=== PATIENT | female | born 1945 | race Caucasian/White ===

== ENCOUNTER 2017-02-20 12:31 | Emergency (ER) | payer MEDICARE, OTHER ==
[~2017-02-20] VITALS: Ht 157.5 cm; Wt 51.4 kg
[2017-02-20] MEDS ORDERED: FAMOTIDINE 20 MG/2 ML VIAL IVP ONE (13:30)
[2017-02-20] MEDS ORDERED: ONDANSETRON PF 4 MG/2 ML VIAL. IV ONE ×2 (13:30→17:00)
[2017-02-20] MEDS ORDERED: IOHEXOL 300 MG/ML 75 ML VIAL. IV ONE (13:45)
[2017-02-20 14:00] LABS: BASO % 0 % (0-3); EOS % 0 % (0-3); HEMATOCRIT 38.4 % (36.0-47.0); HEMOGLOBIN 12.6 g/dL (12.0-15.5); LYMPH # 0.6 x10^3/uL (1.0-4.8); LYMPH % 10 % (24-48); MEAN CORPUSCULAR HEMOGLOBIN 30 pg (25-35); MEAN CORPUSCULAR HGB CONC 33 g/dL (31-37); MEAN CORPUSCULAR VOLUME 91 fL (79-100); MONO # 0.2 x10^3/uL (0.0-1.1); MONO % 3 % (0-9); NEUT # 5.1 x10^3uL (1.8-7.7); NEUT % 87 % (31-73); PLATELET COUNT 199 x10^3/uL (140-400); RED BLOOD COUNT 4.22 x10^6/uL (3.50-5.40); RED CELL DISTRIBUTION WIDTH 14.8 % (11.5-14.5); WHITE BLOOD COUNT 5.9 x10^3/uL (4.0-11.0)
[2017-02-20 14:07] LABS: ALBUMIN 3.7 g/dL (3.4-5.0); ALBUMIN/GLOBULIN RATIO 0.7 (1.0-1.7); CALCIUM 10.3 mg/dL (8.5-10.1); CREATININE 0.7 mg/dL (0.6-1.0); GFR 82.3; POTASSIUM 4.1 mmol/L (3.5-5.1); TOTAL BILIRUBIN 0.5 mg/dL (0.2-1.0)
[2017-02-20 14:46] LABS: BACTERIA,URINE MOD /HPF (0-FEW); BILIRUBIN,URINE NEG (NEG); CLARITY,URINE TURBID; COLOR,URINE YELLOW; GLUCOSE,URINE NEG (NEG); NITRITE,URINE NEG (NEG); SQUAMOUS EPITHELIAL CELL,UR FEW /LPF; UROBILINOGEN,URINE 0.2 mg/dL (0.2 mg/dL); WBC,URINE TNTC /HPF (0-4)
--- NOTE | 2017-02-20 15:14 | RAD ---
CT of the abdomen and pelvis with contrast, 02/20/2017: History: Nausea and vomiting, left lower quadrant pain Multidetector CT imaging was performed following an IV bolus injection of iodinated contrast material. No oral contrast material was administered for this exam. Comparison is made to a study from 03/18/2008. There is mild linear scarring and/or atelectasis in the lung bases. Minimal coronary artery calcifications present. There is abnormal soft tissue along the right side of the heart extending into the anterior mediastinum. It demonstrates a CT number of 90 Hounsfield units. It was partially visualized on a CT study from 03/18/2008 and appears to be of similar size. The gallbladder is not visualized and is presumably surgically absent. Mild prominence of the common hepatic duct and central intrahepatic ducts is compatible with the postcholecystectomy state. No hepatic mass is identified. The pancreas is atrophic. The spleen is unremarkable. A moderate-sized staghorn calculus has developed centrally in the right kidney. This extends to the level of the ureteropelvic junction. There is moderate associated right-sided hydronephrosis and cortical loss. No left renal calculi or evidence of left-sided obstruction is present. Mild aortoiliac calcific plaquing is present without evidence of aneurysm. Artifacts arising from a right hip prosthesis degrade image quality in the lower pelvis. No abdominal or pelvic adenopathy is seen. The uterus is surgically absent. There is increased stool throughout the colon. The cecum extends into the lower pelvis. A portion of the appendix appears to be visible and is unremarkable. No dilated appendix or pericecal inflammatory process is seen. No free air or significant free fluid is evident in the abdomen or pelvis. There are biconcave vertebral compression deformities at multiple levels in the lumbar and lower thoracic spine. Similar findings were present on the previous study from 2007. There are moderate scattered degenerative changes in the spine. There is considerable degenerative change at the left hip joint. IMPRESSION: 1. New obstructing staghorn calculus in the right renal pelvis with associated hydronephrosis and severe cortical thinning. 2. 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 Nonemergent CT scan of the chest is suggested for complete evaluation. 3. Increased stool throughout the colon. 4. Multiple chronic vertebral compression deformities. PQRS Compliance Statement: One or more of the following individualized dose reduction techniques were utilized for this examination: 1. Automated exposure control 2. Adjustment of the mA and/or kV according to patient size 3. Use of iterative reconstruction technique
[2017-02-20] MEDS ORDERED: IV NORMAL SALINE 50ML 50 ML ONE (15:15)
[2017-02-20] MEDS ORDERED: cefTRIAXone SODIUM 1 GM VIAL IV ONE (15:15)
--- NOTE | 2017-02-20 15:39 | PHYS DOC ---
General Chief Complaint: NAUSEA/VOMITING/DIARRHEA Stated Complaint: NAUSEA/VOMITING Time Seen by MD: 13:02 Source: patient Exam Limitations: other (vague historian) Problems: History of Present Illness Initial Comments Patient is a 71-year-old female brought to the ED with reported constipation and abdominal pain. Patient states she has rheumatoid arthritis history and takes opiate pain medications. She says for the past week she's been unable to pass any bowel movements. This morning approximately 5 AM she began feeling nauseous and had several episodes of nonbloody emesis. On arrival to the emergency department she complains of abdominal discomfort, when asked to localize she points to her left lower quadrant. She states she has been passing gas and denies any urinary symptoms, her appetite remains. She says she's had similar symptoms in the past for which she took an oral medication which enabled her bowels to move. She considered taking this "medication" yesterday but was tired and then forgot about it. Her abdominal discomfort is worse with certain movements and direct palpation, it is relieved somewhat with rest. She denies any fever chills sweats or myalgias. Further questioning reveals that she did have an episode of left lower chest discomfort approximately 9 AM today which resolved some time between 9 AM and noon today without treatment. She states she's had no further recurrences of chest pain and denies associated shortness of breath, diaphoresis, arm or neck symptoms. She was having intermittent nausea and vomiting with the symptoms began. Patient has chronic pain for which she takes Dilaudid and fentanyl daily, she has had recurrent episodes of constipation similar to today's in the past. PCP Dr. Gian Levin URO/Cardio Timing/Duration: 1 week, getting worse Severity: severe Modifying Factors: worse with movement, improves with rest Associated Symptoms: chest pain (I), malaise, nausea/vomiting, other Allergies: Coded Allergies: codeine (Verified Allergy, Unknown, 02/20/17) shrimp (Verified Allergy, Unknown, 02/20/17) Past Medical History Medical History: other (rheumatoid arthritis, constipation, chronic pain) Surgical History: other (knee replacement, hip replacement, cholecystectomy, total hysterectomy) Social History Smoker: non-smoker Alcohol: none Drugs: none Review of Systems Constitutional: denies chills, denies diaphoresis, denies fever, malaise Respiratory: denies cough, denies shortness of breath, denies wheezing Cardiovascular: chest pain, denies palpitations, denies syncope Gastrointestinal: see HPI Genitourinary: denies dysuria, denies frequency, denies hematuria Musculoskeletal: see HPI Psychiatric/Neurological: denies headache, denies numbness, denies paresthesia , denies weakness Hematologic/Lymphatic: denies blood clots, denies easy bleeding, denies easy bruising Physical Exam General Appearance: mild distress, thin Eyes: bilateral eye normal inspection, bilateral eye EOMI (bifocals) Ear, Nose, Throat: hearing grossly normal, normal ENT inspection, normal pharynx Neck: non-tender, supple Respiratory: normal breath sounds, no respiratory distress Cardiovascular: normal peripheral pulses, regular rate, rhythm Gastrointestinal: soft (ND, generalized TTP with guarding no rebound noted, stool palpable in sigmoid colon no pulsatile masses, BS diminished) Back: no vertebral tenderness, CVA tenderness (R) Extremities: non-tender, normal inspection Neurologic/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 Pertinent labs: Urine 13, creatinine 0.7, troponin 0.056, urinalysis: WBC TNTC, RBC 6-10, LE large, blood mod PATIENT: VLAD ALEGRIA ACCOUNT: [id number] : 1945 LOCATION: ER AGE: 71 SEX: F EXAM STATUS: REG ER ORD. PHYSICIAN: DEVYN ALVARENGA DO REASON: n/v, LLQ pain PROCEDURE: CT ABD PELV W/ IV CONTRST ONLY CT of the abdomen and pelvis with contrast, 02/20/2017: History: Nausea and vomiting, left lower quadrant pain Multidetector CT imaging was performed following an IV bolus injection of iodinated contrast material. No oral contrast material was administered for this exam. Comparison is made to a study from 03/18/2008. There is mild linear scarring and/or atelectasis in the lung bases. Minimal coronary artery calcifications present. There is abnormal soft tissue along the right side of the heart extending into the anterior mediastinum. It demonstrates a CT number of 90 Hounsfield units. It was partially visualized on a CT study from 03/18/2008 and appears to be of similar size. The gallbladder is not visualized and is presumably surgically absent. Mild prominence of the common hepatic duct and central intrahepatic ducts is compatible with the postcholecystectomy state. No hepatic mass is identified. The pancreas is atrophic. The spleen is unremarkable. A moderate-sized staghorn calculus has developed centrally in the right kidney. This extends to the level of the ureteropelvic junction. There is moderate associated right-sided hydronephrosis and cortical loss. No left renal calculi or evidence of left-sided obstruction is present. Mild aortoiliac calcific plaquing is present without evidence of aneurysm. Artifacts arising from a right hip prosthesis degrade image quality in the lower pelvis. No abdominal or pelvic adenopathy is seen. The uterus is surgically absent. There is increased stool throughout the colon. The cecum extends into the lower pelvis. A portion of the appendix appears to be visible and is unremarkable. No dilated appendix or pericecal inflammatory process is seen. No free air or significant free fluid is evident in the abdomen or pelvis. There are biconcave vertebral compression deformities at multiple levels in the lumbar and lower thoracic spine. Similar findings were present on the previous study from 2007. There are moderate scattered degenerative changes in the spine. There is considerable degenerative change at the left hip joint. IMPRESSION: 1. New obstructing staghorn calculus in the right renal pelvis with associated hydronephrosis and severe cortical thinning. 2. 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 Nonemergent CT scan of the chest is suggested for complete evaluation. 3. Increased stool throughout the colon. 4. Multiple chronic vertebral compression deformities. PQRS Compliance Statement: One or more of the following individualized dose reduction techniques were utilized for this examination: 1. Automated exposure control 2. Adjustment of the mA and/or kV according to patient size 3. Use of iterative reconstruction technique DICTATED AND SIGNED BY: SEVERIANO MCKAY MD DATE: 02/20/17 7315 CC: JOYCE CARLOS MD; DEVYN ALVARENGA DO ~ Patient received Zofran and Pepcid on arrival. Rocephin IV ordered once urine noted to be positive for infection. Analgesia achieved with fentanyl intravenously, patient was given 324 mg of aspirin to chew up which restimulated her nausea and vomiting. Zofran intravenously with adequate antiemetic effect. Patient remained in stable condition without chest pain throughout the remainder of the ED course. 1549: Pt discussed with service parts coordinator. They will contact the internal medicine team and call back. 1611: Patient accepted for EMS transferr to [facility] Dr. Shelly Smith is accepting physician. No new interventions or orders received. IMPRESSIONS: Obstructing staghorn calculus R renal pelvis with hydronephrosis and severe cortical thinning UTI Elevated Troponin I Constipation Multiple chronic vertebral compression fractures Osteoporosis Stable-appearing ant mediastinal mass (seen in '08 imaging) requiring follow up Abdominal pain with emesis likely 2nd above DEVYN ALVARENGA DO Feb 20, 2017 15:39
[2017-02-20] MEDS: fentaNYL PF 100 MCG/2 ML VIAL IV PRN ×2 (15:41→16:02)
[2017-02-20] MEDS ORDERED: ASPIRIN 81 MG TAB.CHEW PO ONE (16:30)
--- NOTE | 2017-02-20 17:08 | RAD ---
Indication shortness of air. A single view of the chest was obtained and is compared to an examination June 22, 2010. Heart size is at the upper limits of normal. There is no congestive heart failure. A focal infiltrate is not seen. Significant pleural fluid is not present and there is no pneumothorax. There are degenerative changes about the shoulders. IMPRESSION: No acute or focal process is seen in the chest
[2017-02-20 17:18] VITALS: BP 158/68
--- NOTE | 2017-02-21 01:03 | EKG ---
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
== END 2017-02-20 18:30 | disposition short-term general hospital (02) ==
LOC: ER 12:31
DX: N13.2 Hydronephrosis with renal and ureteral calculous obstruction (principal); N39.0 Urinary tract infection, site not specified; M06.9 Rheumatoid arthritis, unspecified; M81.0 Age-related osteoporosis without current pathological fracture; M84.48XA Pathological fracture, other site, initial encounter for fracture; R79.89 Other specified abnormal findings of blood chemistry; K59.00 Constipation, unspecified; G89.29 Other chronic pain; Z96.659 Presence of unspecified artificial knee joint; Z88.5 Allergy status to narcotic agent; Z91.013 Allergy to seafood
CPT/HCPCS: 36415; 51701; 71010; 74177; 80053; 81001; 82550; 83690; 84484; 85025; 87086; 93005; 96365; 96375; 96376; 99285; J0696; J2405; J3010; Q9967; S0028

== ENCOUNTER 2018-03-08 00:56 | Emergency (ER) | payer MEDICARE, OTHER ==
[~2018-03-08] VITALS: Ht 157.5 cm; Wt 47.6 kg
[2018-03-08] MEDS ORDERED: ONDANSETRON ODT 4 MG TAB.RAPDIS ONE (01:13)
--- NOTE | 2018-03-08 01:26 | EKG ---
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
[2018-03-08] MEDS ORDERED: FAMOTIDINE 20 MG/2 ML VIAL IVP ONE (01:30)
[2018-03-08] MEDS ORDERED: ONDANSETRON PF 4 MG/2 ML VIAL. IV ONE (01:30)
[2018-03-08] MEDS ORDERED: IV NORMAL SALINE 1,000ML 1,000 ML IV SCH (01:30)
--- NOTE | 2018-03-08 01:57 | PHYS DOC ---
Past History Past Medical History: Arthritis Past Surgical History: Cholecystectomy, Hip Replacement, Hysterectomy, Knee Replacement, Tonsillectomy Alcohol Use: None Drug Use: None Adult General Chief Complaint Chief Complaint: NAUSEA/VOMITING/DIARRHEA HPI HPI Patient is a 72 year old female who presents with complaint of nausea, vomiting , and abdominal pain. Patient states that she was seen by her primary doctor yesterday for constipation. The patient has had history constipation. The patient is currently on chronic narcotic drug therapy due to history of rheumatoid arthritis and states that she is on oral Dilaudid at home. Patient states that she was started on an oral daily pill for treatment of constipation yesterday but is unable to name the medication. She states shortly after starting this medication she has been having generalized abdominal pain and multiple episodes of nausea and vomiting. Patient states that she still has not had a bowel movement since starting the medication. Denies any fevers. Review of Systems Review of Systems Constitutional: Denies fever or chills [] Eyes: Denies change in visual acuity, redness, or eye pain [] HENT: Denies nasal congestion or sore throat [] Respiratory: Denies cough or shortness of breath [] Cardiovascular: Denies chest pain or edema[] GI: Abdominal pain, nausea, vomiting, constipation, denies bloody stools or diarrhea [] : Denies dysuria or hematuria [] Musculoskeletal: Denies back pain or joint pain [] Integument: Denies rash or skin lesions [] Neurologic: Denies headache, focal weakness or sensory changes [] All other systems were reviewed and found to be within normal limits, except as documented in this note. Current Medications Current Medications Current Medications Medications (Trade) Dose Ordered Sig/Graciela Start Time Stop Time Status Last Admin Dose Admin Famotidine (Pepcid Vial) 20 mg 1X ONCE 03/08/18 01:30 03/08/18 01:31 DC Ondansetron HCl (Zofran Odt) 4 mg STK-MED ONCE 03/08/18 01:13 03/08/18 01:14 DC Ondansetron HCl (Zofran) 4 mg 1X ONCE 03/08/18 01:30 03/08/18 01:31 DC Sodium Chloride 1,000 ml @ 1,000 mls/hr Q1H 03/08/18 01:30 03/08/18 02:29 Allergies Allergies Allergies Coded Allergies Type Severity Reaction Last Updated Verified codeine Allergy Unknown 02/20/17 Yes shrimp Allergy Unknown 02/20/17 Yes Physical Exam Physical Exam Constitutional: Alert, afebrile, appears ill. [] HENT: Normocephalic, atraumatic, bilateral external ears normal, oropharynx moist, no oral exudates, nose normal. [] Eyes: PERRLA, EOMI, conjunctiva normal, no discharge. [] Neck: Normal range of motion, no tenderness, supple, no stridor. [] Cardiovascular:Heart rate regular rhythm, no murmur [] Lungs & Thorax: Bilateral breath sounds clear to auscultation [] Abdomen: Bowel sounds normal, soft, generalized tenderness to palpation, no guarding or rebound tenderness, no masses, no pulsatile masses. [] Skin: Warm, dry, no erythema, no rash. [] Back: No tenderness, no CVA tenderness. [] Extremities: No tenderness, no cyanosis, no clubbing, ROM intact, no edema. [] Neurologic: Alert and oriented X 3, normal motor function, normal sensory function, no focal deficits noted. [] Current Patient Data Vital Signs Vital Signs Date Time Temp Pulse Resp B/P (MAP) Pulse Ox O2 Delivery O2 Flow Rate FiO2 03/08/18 01:04 98.4 92 30 98 Room Air Lab Results Laboratory Tests Test 03/08/18 01:48 White Blood Count 5.3 x10^3/uL Red Blood Count 4.50 x10^6/uL Hemoglobin 12.8 g/dL Hematocrit 39.2 % Mean Corpuscular Volume 87 fL Mean Corpuscular Hemoglobin 29 pg Mean Corpuscular Hemoglobin Concent 33 g/dL Red Cell Distribution Width 18.1 % Platelet Count 470 x10^3/uL Neutrophils (%) (Auto) 83 % Lymphocytes (%) (Auto) 11 % Monocytes (%) (Auto) 4 % Eosinophils (%) (Auto) 0 % Basophils (%) (Auto) 1 % Neutrophils # (Auto) 4.4 x10^3uL Lymphocytes # (Auto) 0.6 x10^3/uL Monocytes # (Auto) 0.2 x10^3/uL Eosinophils # (Auto) 0.0 x10^3/uL Basophils # (Auto) 0.1 x10^3/uL Sodium Level 135 mmol/L Potassium Level 5.0 mmol/L Chloride Level 102 mmol/L Carbon Dioxide Level 26 mmol/L Anion Gap 7 Blood Urea Nitrogen 14 mg/dL Creatinine 0.5 mg/dL Estimated GFR (Cockcroft-Gault) 120.9 BUN/Creatinine Ratio 28 Glucose Level 149 mg/dL Calcium Level 9.4 mg/dL Total Bilirubin 0.4 mg/dL Aspartate Amino Transf (AST/SGOT) 107 U/L Alanine Aminotransferase (ALT/SGPT) 71 U/L Alkaline Phosphatase 74 U/L Creatine Kinase 620 U/L Creatine Kinase MB (Mass) 21.0 ng/mL Creatine Kinase MB Relative Index 3.4 % Troponin I Quantitative 0.139 ng/mL Total Protein 8.6 g/dL Albumin 2.2 g/dL Albumin/Globulin Ratio 0.3 Lipase 87 U/L Current Medications Medications (Trade) Dose Ordered Sig/Graciela Route PRN Reason Start Time Stop Time Status Last Admin Dose Admin Ondansetron HCl (Zofran Odt) 4 mg STK-MED ONCE .ROUTE 03/08/18 01:13 03/08/18 01:14 DC Sodium Chloride 1,000 ml @ 1,000 mls/hr Q1H IV 03/08/18 01:30 03/08/18 02:30 DC 03/08/18 01:56 Ondansetron HCl (Zofran) 4 mg 1X ONCE IV 03/08/18 01:30 03/08/18 01:31 DC 03/08/18 01:56 Famotidine (Pepcid Vial) 20 mg 1X ONCE IVP 03/08/18 01:30 03/08/18 01:31 DC 03/08/18 01:57 EKG EKG Interpreted by me: Heart rate 89, sinus rhythm, normal axis, T-wave inversions in V2 through V6 stable from previous EKG, no acute changes[] Radiology/Procedures Radiology/Procedures 3 view acute abdominal series interpreted by me: No pulmonary infiltrates or effusions, moderate distention of stomach and small intestine, moderate to severe amount of retained stool in left transverse and descending colon[] Course & Med Decision Making Course & Med Decision Making Pertinent Labs and Imaging studies reviewed. (See chart for details) Patient was started on IV fluids and Zofran in the emergency department. The patient's x-ray imaging shows significant distention of the stomach and intestine. I suspect that the patient was given Relistor for treatment of constipation and her symptoms may be secondary to this treatment. An NG tube was placed in the stomach and started on low suction. Patient also found to have elevated cardiac enzymes including a troponin of 0.139. Due to the vomiting the patient is unable to take aspirin at this time and thus this was not given. The patient does not have active chest pain symptoms at this time. Patient will need further evaluation to determine acuity of her abnormal cardiac enzymes. The patient will also need GI and general surgery consult for her small bowel obstruction versus ileus. The patient is unable to receive this care here at [facility] and thus will need transfer. The patient states that she would like to be transferred to [facility] as her primary doctor works through their system. I contacted [facility] and spoke with Charlene Foster, FARZANA for Dr. Ware, who accepted patient for transfer. Patient will be transferred by ground EMS. Spoke with patient regarding plan of care and she was in agreement at time of disposition. Dragon Disclaimer Dragon Disclaimer This electronic medical record was generated, in whole or in part, using a voice recognition dictation system. Departure Departure: Impression: Primary Impression: Small bowel obstruction Additional Impressions: Nausea and vomiting Abnormal cardiac enzyme level Rheumatoid arthritis Disposition: XFER SHT-TRM HOSP Condition: GUARDED Referrals: JOYCE CARLOS MD (PCP) Problem Qualifiers Additional Impressions: Nausea and vomiting Vomiting type: unspecified Vomiting Intractability: intractable Qualified Codes: R11.2 - Nausea with vomiting, unspecified Rheumatoid arthritis Rheumatoid arthritis location: unspecified site Rheumatoid factor presence: unspecified presence Qualified Codes: M06.9 - Rheumatoid arthritis, unspecified ZULMA BRUSH MD Mar 08, 2018 01:57
[2018-03-08 02:09] LABS: BASO # 0.1 x10^3/uL (0.0-0.2); BASO % 1 % (0-3); EOS % 0 % (0-3); HEMATOCRIT 39.2 % (36.0-47.0); HEMOGLOBIN 12.8 g/dL (12.0-15.5); LYMPH # 0.6 x10^3/uL (1.0-4.8); LYMPH % 11 % (24-48); MEAN CORPUSCULAR HEMOGLOBIN 29 pg (25-35); MEAN CORPUSCULAR HGB CONC 33 g/dL (31-37); MEAN CORPUSCULAR VOLUME 87 fL (79-100); MONO # 0.2 x10^3/uL (0.0-1.1); MONO % 4 % (0-9); NEUT # 4.4 x10^3uL (1.8-7.7); NEUT % 83 % (31-73); PLATELET COUNT 470 x10^3/uL (140-400); RED CELL DISTRIBUTION WIDTH 18.1 % (11.5-14.5); WHITE BLOOD COUNT 5.3 x10^3/uL (4.0-11.0)
[2018-03-08 02:36] LABS: ALBUMIN 2.2 g/dL (3.4-5.0); ALBUMIN/GLOBULIN RATIO 0.3 (1.0-1.7); CALCIUM 9.4 mg/dL (8.5-10.1); CREATININE 0.5 mg/dL (0.6-1.0); GFR 120.9; TOTAL BILIRUBIN 0.4 mg/dL (0.2-1.0); TOTAL PROTEIN 8.6 g/dL (6.4-8.2)
[2018-03-08 03:31] VITALS: BP 186/93
--- NOTE | 2018-03-08 06:45 | RAD ---
Indication: NG tube placement TECHNIQUE: Portable AP view of the chest and abdomen COMPARISON: Study from same day earlier FINDINGS: Interval placement of NG tube with its tip in the body of the stomach. Interval improvement in previously seen gaseous distention of the stomach. Stable opacification of the right renal collecting system which may represent a calculus. IMPRESSION: Tip of the NG tube is in the body of stomach improvement in previously seen gaseous distention. Electronically signed by: Juan Garcia DO (03/08/2018 6:41 AM) [id number]
--- NOTE | 2018-03-08 08:27 | RAD ---
Examination: Acute abdomen series HISTORY: History of nausea, vomiting COMPARISON: None available FINDINGS: Moderate air distended stomach identified. Air distended small bowel loops. Large amount of stool identified in the colon. Large staghorn type calculus identified in the right kidney filling the right renal pelvis and the calyces. The cardiomediastinal silhouette grossly appears unremarkable.There is no acute infiltrate identified. IMPRESSION: 1. Large amount of stool identified in the colon with air distended small bowel loops and moderately distended stomach could be constipation/fecal impaction with ileus. 2. Large staghorn type calculus identified filling the right renal calyces and renal pelvis similar to prior CT from 02/20/2017. Electronically signed by: Kar Manning MD (03/08/2018 8:23 AM) [id number]
== END 2018-03-08 03:45 | disposition short-term general hospital (02) ==
LOC: ER 00:56
DX: K56.609 Unspecified intestinal obstruction, unspecified as to partial versus complete obstruction (principal); R74.8 Abnormal levels of other serum enzymes; M06.9 Rheumatoid arthritis, unspecified; K59.00 Constipation, unspecified; Z90.49 Acquired absence of other specified parts of digestive tract; Z90.710 Acquired absence of both cervix and uterus; Z88.5 Allergy status to narcotic agent; Z91.013 Allergy to seafood
CPT/HCPCS: 36415; 43752; 74018; 74022; 80053; 82553; 83690; 84484; 85025; 93005; 96361; 96374; 96375; 99285; J2405; S0028; J7030

== ENCOUNTER 2018-04-03 10:32 | Inpatient (IN) | payer OTHER, MEDICARE ==
[~2018-04-03] VITALS: Ht 157.5 cm; Wt 57.8 kg
[2018-04-03] MEDS ORDERED: IV NORMAL SALINE 1,000ML 1,000 ML IV ONE (10:45)
[2018-04-03] MEDS ORDERED: fentaNYL PF 250 MCG/5 ML VIAL IV ONE (11:10)
[2018-04-03] MEDS ORDERED: ONDANSETRON PF 4 MG/2 ML VIAL. IV ONE (11:10)
[2018-04-03 11:19] LABS: BASO # 0.1 x10^3/uL (0.0-0.2); BASO % 1 % (0-3); EOS % 0 % (0-3); HEMATOCRIT 38.8 % (36.0-47.0); HEMOGLOBIN 12.7 g/dL (12.0-15.5); LYMPH # 0.6 x10^3/uL (1.0-4.8); LYMPH % 7 % (24-48); MEAN CORPUSCULAR HEMOGLOBIN 28 pg (25-35); MEAN CORPUSCULAR HGB CONC 33 g/dL (31-37); MEAN CORPUSCULAR VOLUME 87 fL (79-100); MONO # 0.3 x10^3/uL (0.0-1.1); MONO % 4 % (0-9); NEUT # 7.8 x10^3uL (1.8-7.7); NEUT % 88 % (31-73); PLATELET COUNT 453 x10^3/uL (140-400); RED BLOOD COUNT 4.48 x10^6/uL (3.50-5.40); WHITE BLOOD COUNT 8.8 x10^3/uL (4.0-11.0)
--- NOTE | 2018-04-03 11:27 | RAD ---
CHEST AP ONLY Clinical Indication: CHEST PAIN Comparison: AP chest February 20, 2017. Findings: Atherosclerotic and tortuous thoracic aorta. Cardiac size is normal. Lungs are clear. There is no pneumothorax. No pleural effusion is appreciated. Advanced degenerative arthropathy of the shoulders. Air distends hollow viscus below the left hemidiaphragm. Finding may be the stomach. IMPRESSION: No acute cardiopulmonary process. Electronically signed by: David Parikh MD (04/03/2018 11:24 AM) [id number]
[2018-04-03 12:06] LABS: ALBUMIN 1.9 g/dL (3.4-5.0); ALBUMIN/GLOBULIN RATIO 0.3 (1.0-1.7); CALCIUM 8.3 mg/dL (8.5-10.1); CREATININE 0.4 mg/dL (0.6-1.0); GFR 156.5; POTASSIUM 3.3 mmol/L (3.5-5.1); TOTAL BILIRUBIN 0.4 mg/dL (0.2-1.0); TOTAL PROTEIN 7.4 g/dL (6.4-8.2)
--- NOTE | 2018-04-03 12:15 | EKG ---
[address] [address] Test Date: 2018-04-03 Test Time: 10:44:53 Pat Name: VLAD ALEGRIA Department: Room: Gender: F Dopster: : 1945 Requested By: AMBAR GENTILE Order Number: [id number] Reading MD: Giovany Huertas Measurements Intervals [place] Rate: 96 P: -2 CA: 138 QRS: 18 QRSD: 84 T: 139 QT: 360 QTc: 462 Interpretive Statements SINUS RHYTHM ST & T ABNORMALITY, CONSIDER ANTERIOR ISCHEMIA OR LEFT VENTRICULAR STRAIN T ABNORMALITY IN LATERAL LEADS ABNORMAL ECG Electronically Signed On 04-04-2018 11:29:54 CDT by Giovany Huertas
[2018-04-03] MEDS ORDERED: IOHEXOL 300 MG/ML 75 ML VIAL. IV ONE (13:20)
--- NOTE | 2018-04-03 13:50 | ED.ADGEN ---
Past History Past Medical History: Arthritis Past Surgical History: Cholecystectomy, Hip Replacement, Hysterectomy, Knee Replacement, Tonsillectomy Alcohol Use: None Drug Use: None Adult General Chief Complaint Chief Complaint Nausea vomiting HPI HPI Patient is a 72-year-old female with history of recurrent bowel obstructions who presents with nausea vomiting and diffuse abdominal pain starting earlier today. No abdominal pain is diffuse, mild, cramping and migratory. No fever chills, sweats. No chest pain shortness of breath. Patient states she has had similar bowel obstructions and was recently admitted to [facility] for the same. No urinary frequency urgency. No other acute symptoms or complaints.[] Review of Systems Review of Systems Review symptoms as per history of present illness. All other review symptoms are negative. All other systems were reviewed and found to be within normal limits, except as documented in this note. Current Medications Current Medications Current Medications Medications (Trade) Dose Ordered Sig/Graciela Start Time Stop Time Status Last Admin Dose Admin Fentanyl Citrate (Fentanyl 5ml Vial) 150 mcg 1X ONCE 04/03/18 11:10 04/03/18 11:11 DC 04/03/18 11:16 150 MCG Iohexol (Omnipaque 300 Mg/ml) 75 ml 1X ONCE 04/03/18 13:20 04/03/18 13:21 DC Ondansetron HCl (Zofran) 4 mg 1X ONCE 04/03/18 11:10 04/03/18 11:11 DC 04/03/18 11:16 4 MG Sodium Chloride 1,000 ml @ 1,000 mls/hr 1X ONCE 04/03/18 10:45 04/03/18 11:44 DC 04/03/18 11:15 1,000 MLS/HR Allergies Allergies Allergies Coded Allergies Type Severity Reaction Last Updated Verified codeine Allergy Unknown 02/20/17 Yes shrimp Allergy Unknown 02/20/17 Yes Physical Exam Physical Exam Constitutional: Well developed, well nourished, no acute distress, non-toxic appearance. [] HENT: Normocephalic, atraumatic, bilateral external ears normal, oropharynx moist, no oral exudates, nose normal. [] Eyes: PERRLA, EOMI, conjunctiva normal, no discharge. [] Neck: Normal range of motion, no tenderness, supple, no stridor. [] Cardiovascular:Heart rate regular rhythm, no murmur [] Lungs & Thorax: Bilateral breath sounds clear to auscultation [] Abdomen: Bowel sounds normal, soft, no tenderness. [] Skin: Warm, dry. [] Back: No tenderness. [] Extremities: No tenderness. Arthritic type deformities of hands. [] Neurologic: Alert and oriented X 3, normal motor function, normal sensory function, no focal deficits noted. [] Psychologic: Affect normal, judgement normal, mood normal. [] Current Patient Data Vital Signs Vital Signs Date Time Temp Pulse Resp B/P (MAP) Pulse Ox O2 Delivery O2 Flow Rate FiO2 04/03/18 12:16 94 18 155/98 (117) 98 Room Air 04/03/18 10:45 98.2 Lab Results Laboratory Tests Test 04/03/18 10:57 04/03/18 11:37 04/03/18 12:54 04/03/18 14:16 White Blood Count 8.8 x10^3/uL (4.0-11.0) Red Blood Count 4.48 x10^6/uL (3.50-5.40) Hemoglobin 12.7 g/dL (12.0-15.5) Hematocrit 38.8 % (36.0-47.0) Mean Corpuscular Volume 87 fL (79-100) Mean Corpuscular Hemoglobin 28 pg (25-35) Mean Corpuscular Hemoglobin Concent 33 g/dL (31-37) Red Cell Distribution Width 18.0 % (11.5-14.5) H Platelet Count 453 x10^3/uL (140-400) H Neutrophils (%) (Auto) 88 % (31-73) H Lymphocytes (%) (Auto) 7 % (24-48) L Monocytes (%) (Auto) 4 % (0-9) Eosinophils (%) (Auto) 0 % (0-3) Basophils (%) (Auto) 1 % (0-3) Neutrophils # (Auto) 7.8 x10^3uL (1.8-7.7) H Lymphocytes # (Auto) 0.6 x10^3/uL (1.0-4.8) L Monocytes # (Auto) 0.3 x10^3/uL (0.0-1.1) Eosinophils # (Auto) 0.0 x10^3/uL (0.0-0.7) Basophils # (Auto) 0.1 x10^3/uL (0.0-0.2) Sodium Level 138 mmol/L (136-145) Potassium Level 3.3 mmol/L (3.5-5.1) L Chloride Level 106 mmol/L (98-107) Carbon Dioxide Level 21 mmol/L (21-32) Anion Gap 11 (6-14) Blood Urea Nitrogen 8 mg/dL (7-20) Creatinine 0.4 mg/dL (0.6-1.0) L Estimated GFR (Cockcroft-Gault) 156.5 BUN/Creatinine Ratio 20 (6-20) Glucose Level 111 mg/dL (70-99) H Calcium Level 8.3 mg/dL (8.5-10.1) L Total Bilirubin 0.4 mg/dL (0.2-1.0) Aspartate Amino Transferase (AST) 67 U/L (15-37) H Alanine Aminotransferase (ALT) 50 U/L (14-59) Alkaline Phosphatase 65 U/L (46-116) Troponin I Quantitative 0.111 ng/mL (0-0.055) H 0.093 ng/mL (0-0.055) H Total Protein 7.4 g/dL (6.4-8.2) Albumin 1.9 g/dL (3.4-5.0) L Albumin/Globulin Ratio 0.3 (1.0-1.7) L Lipase 65 U/L (73-393) L Urine Collection Type U cath Urine Color Yellow Urine Clarity Cloudy Urine pH 6.0 Urine Specific [place] 1.020 Urine Protein 30 mg/dl (NEG-TRACE) Urine Glucose (UA) Neg mg/dL (NEG) Urine Ketones (Stick) 80 mg/dL (NEG) Urine Blood Small (NEG) Urine Nitrite Neg (NEG) Urine Bilirubin Neg (NEG) Urine Urobilinogen Dipstick 0.2 mg/dL (0.2 mg/dL) Urine Leukocyte Esterase Large (NEG) Urine RBC 6-10 /HPF (0-2) Urine WBC >40 /HPF (0-4) Urine Squamous Epithelial Cells Few /LPF Urine Amorphous Sediment Present /HPF Urine Bacteria Few /HPF (0-FEW) Urine Hyaline Casts Occ /HPF Urine Mucus Slight /LPF EKG EKG [KEG: Normal sinus rhythm, ventricular hypertrophy, diffuse ST e depression in anterior lateral leads with T-wave inversions. No acute ST-T elevation.] Radiology/Procedures Radiology/Procedures Chest XR: CT abdom/pelvis: Gastritis, large: Stool volume, right kidney atrophy, anasarca. [] Course & Med Decision Making Course & Med Decision Making Pertinent Labs and Imaging studies reviewed. (See chart for details) [Patient's CT abdomen pelvis with possible gastritis. Nausea improved with treatment. Plans of residual abdominal cramping, suspect likely due to constipation from chronic narcotic use. EKG shows ST depression with elevated troponin. Repeat troponin unchanged from venous line. Will admit for other treatment of symptoms serial cardiac enzymes. Her to see [place] orders provided.] Final Impression Final Impression [1. Nausea and vomiting 2. Abdominal pain 3. UTI 4. fecal impaction] Dragon Disclaimer Dragon Disclaimer This electronic medical record was generated, in whole or in part, using a voice recognition dictation system. AMBAR GENTILE DO Apr 03, 2018 13:50
--- NOTE | 2018-04-03 14:22 | RAD ---
PQRS Compliance Statement: One or more of the following individualized dose reduction techniques were utilized for this examination: 1. Automated exposure control 2. Adjustment of the mA and/or kV according to patient size 3. Use of iterative reconstruction technique CT ABD PELV W/ IV CONTRST ONLY Clinical Indication: abdominal pain nausea and vomiting Comparison: CT abdomen and pelvis with contrast, February 20, 2017. Technique: Helical CT imaging of the abdomen and pelvis is performed after 73 cc of Omnipaque 300 IV contrast. Oral contrast not given. Findings: Trace bilateral pleural effusions. There are consolidations in the bilateral lower lobes with air bronchograms. Cardiac size upper limits of normal. Coronary artery disease. Stable soft tissue density in the anterior mediastinum. The liver is heterogeneous. Liver parenchyma is mildly hypodense. There is a vague hypodensity subcapsular in segment 7, image 8. Extrahepatic duct dilation is unchanged. The spleen, pancreas, adrenal glands, and abdominal aorta caliber are normal. The left kidney is normal. Stable findings of the right kidney include atrophy and caliectasis and staghorn calculus. Proximal right ureter periureteral stranding. There is proximal gastric wall thickening and mucosal hyperenhancement. There is no small bowel obstruction. Moderate distention of the rectum with stool. There is large colon stool volume. There is no colon wall thickening. The colon findings are similar to prior study. No urinary bladder wall thickening. Minimal dependent hyperdensity in the bladder may be intravenous contrast. Hysterectomy. Limited evaluation of the pelvis due to beam hardening artifact from right hip arthroplasty. There is degenerative arthropathy of the left hip. There is anasarca. Multilevel compression fractures of the lumbar spine are stable. IMPRESSION: 1. Trace bilateral pleural effusions. Consolidations in the bilateral lower lobes with air bronchograms. Considerations include aspiration, pneumonia, or atelectasis. 2. Proximal gastric wall thickening and mucosal hyperenhancement suggestive of nonspecific gastritis. 3. Large colon stool volume. 4. Stable right kidney atrophy, caliectasis, and staghorn calculus. No inflammatory changes of the right kidney are identified to suggest xanthogranulomatous pyelonephritis. 5. Liver is heterogeneous. Considerations include heterogeneous fatty infiltration or passive hepatic congestion versus infiltrative process. 6. Anasarca. Electronically signed by: David Parikh MD (04/03/2018 2:19 PM) [id number]
[2018-04-03 14:45] LABS: BILIRUBIN,URINE NEG (NEG); CLARITY,URINE CLOUDY; COLOR,URINE YELLOW; GLUCOSE,URINE NEG (NEG)
[2018-04-03 14:46] LABS: AMORPHOUS SEDIMENT,UR PRESENT /HPF; BACTERIA,URINE FEW /HPF (0-FEW); HYALINE CASTS, URINE OCC /HPF; NITRITE,URINE NEG (NEG); SQUAMOUS EPITHELIAL CELL,UR FEW /LPF; UROBILINOGEN,URINE 0.2 mg/dL (0.2 mg/dL); WBC,URINE >40 /HPF (0-4)
[2018-04-03] MEDS ORDERED: ONDANSETRON PF 4 MG/2 ML VIAL. IV PRN (16:30)
[2018-04-03] MEDS ORDERED: HYDROcodone/APAP 5/325MG 1 TAB TABLET PO ONE (17:00)
[2018-04-03] MEDS ORDERED: IV NORMAL SALINE 50ML 50 ML ONE (17:03)
[2018-04-03] MEDS ORDERED: cefTRIAXone SODIUM 1 GM VIAL IV ONE (17:03)
[2018-04-03] MEDS ORDERED: IV NORMAL SALINE 1,000ML 1,000 ML IV SCH (17:30)
[2018-04-03 17:57] VITALS: BP 156/83
[2018-04-03] MEDS ORDERED: MAGNESIUM HYDROXIDE 2,400 MG/30 ML ORAL.SUSP. PO PRN (18:00)
[2018-04-03] MEDS ORDERED: BISACODYL 10 MG SUPP.RECT PR PRN (18:00)
[2018-04-03] MEDS ORDERED: HYDROmorphone PF 1 MG/ML DISP.SYRIN IVP PRN (18:00)
--- NOTE | 2018-04-03 18:18 | NUR ---
PT admitted to room 107 for abd pain. PT is able to verbalize understanding of poc and orientation to unit. Karissa NEVES
[2018-04-03] MEDS ORDERED: BISACODYL 10 MG SUPP.RECT ONE (18:23)
[2018-04-03] MEDS: IV NORMAL SALINE 1,000ML 1,000 ML IV SCH (18:30)
[2018-04-03] MEDS ORDERED: HYDR2TAB31 PO (19:43)
[2018-04-03] MEDS ORDERED: POLY17PO5 PO (19:43)
[2018-04-03] MEDS ORDERED: MIRA25TA PO (19:43)
[2018-04-03] MEDS ORDERED: LORA10TA68 PO (19:43)
[2018-04-03] MEDS ORDERED: MONT10TA9 PO (19:43)
[2018-04-03] MEDS ORDERED: FENT1PAT91 TP (19:43)
[2018-04-03] MEDS ORDERED: ERGO500027 PO (19:43)
[2018-04-03] MEDS ORDERED: OMEP20CA9 PO (19:43)
[2018-04-03] MEDS ORDERED: FOLI1TAB16 PO (19:43)
--- NOTE | 2018-04-03 19:56 | NUR ---
PT unable to void, extremely uncomfortable. Chaparro inserted and 1000cc clear yellow urine in bag. BG
[2018-04-03] MEDS ORDERED: MAGNESIUM CITRATE 296 ML SOLUTION. PO ONE (20:00)
[2018-04-03] MEDS ORDERED: POTASSIUM CHLORIDE 20 MEQ TABLET.ER. PO ONE ×2 (20:15)
[2018-04-03] MEDS ORDERED: GLYCERIN ADULT 1 SUPP.RECT. PR PRN (20:45)
[2018-04-03] MEDS ORDERED: GLYCERIN ADULT 1 SUPP.RECT. PR ONE (20:45)
[2018-04-03] MEDS ORDERED: MAGNESIUM CITRATE 296 ML SOLUTION. PO PRN (20:45)
[2018-04-03] MEDS: AZITHROMYCIN 500 MG in IV NORMAL SALINE 250ML 250 ML IV SCH (21:00)
[2018-04-03] MEDS: FAMOTIDINE 20 MG/2 ML VIAL IVP SCH (21:02)
[2018-04-03 23:08] VITALS: BP 142/84
[2018-04-04] MEDS: IV NORMAL SALINE 1,000ML 1,000 ML IV SCH ×3 (04:45→19:27)
[2018-04-04] MEDS: HYDROmorphone PF 1 MG/ML DISP.SYRIN IV PRN ×4 (04:45→19:59)
[2018-04-04 06:15] VITALS: BP 111/56
[2018-04-04] MEDS: CETIRIZINE HCL 10 MG TABLET PO SCH (08:24)
[2018-04-04] MEDS: FAMOTIDINE 20 MG/2 ML VIAL IVP SCH ×2 (08:24→19:57)
--- NOTE | 2018-04-04 08:56 | NUR ---
PT feeling ok this am. Still feels like she had hard stool stuck near rectum. PT trying to drink more mag citrate and prune juice at this time. Still havning pain. Karissa NEVES
[2018-04-04] MEDS: METOPROLOL TART IMMED RELEASE 25 MG TABLET PO SCH ×2 (09:00→19:58)
--- NOTE | 2018-04-04 09:06 | PDOC2 ---
CONSULT Date of Admission DATE: 04/04/18 TIME: 09:01 Reason for Consult: elevated trop Problem List Problems Medical Problems: (1) Abdominal pain Status: Acute (2) Fecal impaction Status: Acute (3) Gastritis Status: Acute (4) Nausea & vomiting Status: Acute (5) Urinary tract infection Status: Acute History of Present Illness Patient is a 72-year-old female with history of recurrent bowel obstructions who presented with nausea vomiting and diffuse abdominal pain starting yesterday. No fever chills, sweats. No chest pain or shortness of breath. Patient states she has had similar symptoms with bowel obstructions and was recently admitted to [facility] for the same. No urinary symptoms. Troponin was found to be elevated so consult was called. She denies any anginal symptoms , dyspnea, congestive symptoms, edema , palpitations, lightheadedness or syncope. She reports echo and stress testing just 2-3 weeks ago while inpatient at [facility]. Poor functional capacity due to chronic pain. Cardiovascular: Other (irregular heart beat) GI: Constipation, Gastritis Rheumatologic: Rheumatoid arthritis Past Surgical History: Cholecystectomy, Total hip replacement, Total knee replacement Family History denies premature coronary disease Social History denies smoking, significant ETOH, or illicit drugs Current Medications Current Medications Fentanyl Citrate (Fentanyl 5ml Vial) 150 mcg 1X ONCE IV Last administered on 04/03/18at 11:16; Start 04/03/18 at 11:10; Stop 04/03/18 at 11:11; Status DC Ondansetron HCl (Zofran) 4 mg 1X ONCE IV Last administered on 04/03/18at 11:16 ; Start 04/03/18 at 11:10; Stop 04/03/18 at 11:11; Status DC Sodium Chloride 1,000 ml @ 1,000 mls/hr 1X ONCE IV Last administered on 04/03at 11:15; Start 04/03/18 at 10:45; Stop 04/03/18 at 11:44; Status DC Iohexol (Omnipaque 300 Mg/ml) 75 ml 1X ONCE IV ; Start 04/03/18 at 13:20; Stop 04/03/18 at 13:21; Status DC Ceftriaxone Sodium 1 gm/ Sodium Chloride 50 ml @ 100 mls/hr 1X ONCE IV Last administered on 04/03/18at 17:07; Start 04/03/18 at 16:45; Stop 04/03/18 at 17 :14; Status DC Ondansetron HCl (Zofran) 4 mg PRN Q4HRS PRN IV NAUSEA/VOMITING Last administered on 04/03/18at 17:07; Start 04/03/18 at 16:30; Stop 04/04/18 at 16 :29 Famotidine (Pepcid Vial) 20 mg Q12HR IVP Last administered on 04/04/18at 08:24 ; Start 04/03/18 at 21:00 Acetaminophen/ Hydrocodone Bitart (Lortab 5/325) 1 tab 1X ONCE PO ; Start at 17:00; Stop 04/03/18 at 17:01; Status DC Sodium Chloride 50 ml @ As Directed STK-MED ONCE .ROUTE ; Start 04/03/18 at 17: 03; Stop 04/03/18 at 17:04; Status DC Ceftriaxone Sodium (Rocephin) 1 gm STK-MED ONCE IV ; Start 04/03/18 at 17:03; Stop 04/03/18 at 17:04; Status DC Sodium Chloride 1,000 ml @ 100 mls/hr Q10H IV ; Start 04/03/18 at 17:30; Stop 04/03/18 at 18:18; Status DC Magnesium Hydroxide (Milk Of Magnesia) 2,400 mg PRN Q12HR PRN PO CONSTIPATION; Start 04/03/18 at 18:00 Bisacodyl (Dulcolax Supp) 10 mg PRN Q12HR PRN NC CONSTIPATION; Start 04/03/18 at 18:00 Hydromorphone HCl (Dilaudid) 0.5 mg PRN Q4HRS PRN IVP PAIN Last administered on 04/03/18at 18:26; Start 04/03/18 at 18:00 Sodium Chloride 1,000 ml @ 100 mls/hr Q10H IV Last administered on 04/04/18at 04:45; Start 04/03/18 at 18:30 Bisacodyl (Dulcolax Supp) 10 mg STK-MED ONCE .ROUTE Last administered on at 18:26; Start 04/03/18 at 18:23; Stop 04/03/18 at 18:24; Status DC Ceftriaxone Sodium 1 gm/ Sodium Chloride 50 ml @ 100 mls/hr Q24H IV ; Start at 16:00 Magnesium Citrate (Citroma) 296 ml 1X ONCE PO Last administered on 04/03/18at 20:18; Start 04/03/18 at 20:00; Stop 04/03/18 at 20:01; Status DC Potassium Chloride (Klor-Con) 40 meq 1X ONCE PO Last administered on at 20:18; Start 04/03/18 at 20:15; Stop 04/03/18 at 20:16; Status DC Potassium Chloride (Klor-Con) 20 meq STK-MED ONCE PO ; Start 04/03/18 at 20:15 ; Stop 04/03/18 at 20:16; Status DC Hydromorphone HCl (Dilaudid) 1 mg PRN Q2HR PRN IV PAIN Last administered on at 08:27; Start 04/03/18 at 20:30 Azithromycin 500 mg/Sodium Chloride 250 ml @ 250 mls/hr Q24H IV Last administered on 04/03/18at 21:00; Start 04/03/18 at 20:30 Magnesium Citrate (Citroma) 296 ml PRN 1X PRN PO CONSTIPATION; Start 04/03/18 at 20:45 Glycerin (Sani-Supp Adult) 1 supp 1X ONCE NC Last administered on 04/03/18at 21:59; Start 04/03/18 at 20:45; Stop 04/03/18 at 21:00; Status DC Glycerin (Sani-Supp Adult) 1 supp PRN DAILY PRN NC CONSTIPATION; Start at 20:45 Cetirizine HCl (ZyrTEC) 10 mg DAILY PO Last administered on 04/04/18at 08:24; Start 04/04/18 at 09:00 Active Scripts Active Reported Miralax (Polyethylene Glycol 3350) 17 Gm Powd.pack 1 Packet PO DAILY Vitamin D2 (Ergocalciferol (Vitamin D2)) 50,000 Unit Capsule 1 Cap PO WEEKLY Claritin (Loratadine) 10 Mg Tablet 1 Tab PO DAILY Folic Acid 1 Mg Tablet 1 Tab PO DAILY Montelukast Sodium Tablet (Montelukast Sodium) 10 Mg Tablet 10 Mg PO HS Myrbetriq (Mirabegron) 25 Mg Tab.er.24h 25 Mg PO DAILY Omeprazole 20 Mg Capsule.dr 1 Cap PO DAILY DURAGESIC 50mcg/hr (Fentanyl) 1 Each Patch.td72 1 Patch TP Q3DAYS Dilaudid (Hydromorphone Hcl) 2 Mg Tablet 2 Mg PO TID PRN LAST DOSE GIVEN: DATE: TIME: NEXT DOSE DUE: DATE: TIME: Allergies: Coded Allergies: codeine (Verified Allergy, Intermediate, 04/04/18) shrimp (Verified Allergy, Intermediate, 04/04/18) Review of System as per HPI with addition of chronic pain secondary to RA otherwise she denies symptoms. General: Alert, Oriented X3, Cooperative, No acute distress HEENT: Atraumatic, EOMI, Mucous membr. moist/pink Lungs: Other (decreased bases bilaterally without rhonchi, crackles or wheezes. ) VITALS Vital Signs Date Time Temp Pulse Resp B/P (MAP) Pulse Ox O2 Delivery O2 Flow Rate FiO2 04/04/18 08:57 Room Air 04/04/18 08:27 97 04/04/18 06:15 98.3 84 18 111/56 (74) Labs Laboratory Tests Test 04/03/18 10:57 04/03/18 11:37 04/03/18 12:54 04/03/18 14:16 White Blood Count 8.8 x10^3/uL (4.0-11.0) Red Blood Count 4.48 x10^6/uL (3.50-5.40) Hemoglobin 12.7 g/dL (12.0-15.5) Hematocrit 38.8 % (36.0-47.0) Mean Corpuscular Volume 87 fL (79-100) Mean Corpuscular Hemoglobin 28 pg (25-35) Mean Corpuscular Hemoglobin Concent 33 g/dL (31-37) Red Cell Distribution Width 18.0 % (11.5-14.5) Platelet Count 453 x10^3/uL (140-400) Neutrophils (%) (Auto) 88 % (31-73) Lymphocytes (%) (Auto) 7 % (24-48) Monocytes (%) (Auto) 4 % (0-9) Eosinophils (%) (Auto) 0 % (0-3) Basophils (%) (Auto) 1 % (0-3) Neutrophils # (Auto) 7.8 x10^3uL (1.8-7.7) Lymphocytes # (Auto) 0.6 x10^3/uL (1.0-4.8) Monocytes # (Auto) 0.3 x10^3/uL (0.0-1.1) Eosinophils # (Auto) 0.0 x10^3/uL (0.0-0.7) Basophils # (Auto) 0.1 x10^3/uL (0.0-0.2) Sodium Level 138 mmol/L (136-145) Potassium Level 3.3 mmol/L (3.5-5.1) Chloride Level 106 mmol/L (98-107) Carbon Dioxide Level 21 mmol/L (21-32) Anion Gap 11 (6-14) Blood Urea Nitrogen 8 mg/dL (7-20) Creatinine 0.4 mg/dL (0.6-1.0) Estimated GFR (Cockcroft-Gault) 156.5 BUN/Creatinine Ratio 20 (6-20) Glucose Level 111 mg/dL (70-99) Calcium Level 8.3 mg/dL (8.5-10.1) Total Bilirubin 0.4 mg/dL (0.2-1.0) Aspartate Amino Transf (AST/SGOT) 67 U/L (15-37) Alanine Aminotransferase (ALT/SGPT) 50 U/L (14-59) Alkaline Phosphatase 65 U/L (46-116) Troponin I Quantitative 0.111 ng/mL (0-0.055) 0.093 ng/mL (0-0.055) Total Protein 7.4 g/dL (6.4-8.2) Albumin 1.9 g/dL (3.4-5.0) Albumin/Globulin Ratio 0.3 (1.0-1.7) Lipase 65 U/L (73-393) Urine Collection Type U cath Urine Color Yellow Urine Clarity Cloudy Urine pH 6.0 Urine Specific [place] 1.020 Urine Protein 30 mg/dl (NEG-TRACE) Urine Glucose (UA) Neg mg/dL (NEG) Urine Ketones (Stick) 80 mg/dL (NEG) Urine Blood Small (NEG) Urine Nitrite Neg (NEG) Urine Bilirubin Neg (NEG) Urine Urobilinogen Dipstick 0.2 mg/dL (0.2 mg/dL) Urine Leukocyte Esterase Large (NEG) Urine RBC 6-10 /HPF (0-2) Urine WBC >40 /HPF (0-4) Urine Squamous Epithelial Cells Few /LPF Urine Amorphous Sediment Present /HPF Urine Bacteria Few /HPF (0-FEW) Urine Hyaline Casts Occ /HPF Urine Mucus Slight /LPF Images EKG sinus rhythm, LVH, LV strain CXR - IMPRESSION: No acute cardiopulmonary process. CT abd/pelvis IMPRESSION: 1. Trace bilateral pleural effusions. Consolidations in the bilateral lower lobes with air bronchograms. Considerations include aspiration, pneumonia, or atelectasis. 2. Proximal gastric wall thickening and mucosal hyperenhancement suggestive of nonspecific gastritis. 3. Large colon stool volume. 4. Stable right kidney atrophy, caliectasis, and staghorn calculus. No inflammatory changes of the right kidney are identified to suggest xanthogranulomatous pyelonephritis. 5. Liver is heterogeneous. Considerations include heterogeneous fatty infiltration or passive hepatic congestion versus infiltrative process. 6. Anasarca. Assessment/Plan 1. troponin elevation - Mild elevation consistent with NSTEMI. Recent (within the last month) echo, stress testing at [facility]. No anginal symptoms. Request records for review, medical mgmt and further recs post review of records. 2. nausea/vomiting/abdominal pain with recent impaction and constipation issues. per PCP 3. anemia -per PCP 4. hypokalemia - now within normal limits 5. unk lipid status Continue aspirin, beta ramona, request records, echo if not done. Antianginals PRN. Check lipid panel and add statin if indicated. ROCAEL SIMON APRN Apr 04, 2018 09:06
[2018-04-04] MEDS: ASPIRIN ENTERIC COATED 81 MG TABLET.DR. PO SCH (09:30)
--- NOTE | 2018-04-04 10:30 | NUR ---
Lab unable to obtain labs from patient. Labs were drawn using ultrasound in RUE. PT has hematoma at site immediately after draw. PT has had softer bm this am after a very large amount of hard stool throughout the night and admit. The patient was impacted with hard stool on arrival to unit and was digital disimpacted numerous times throughout the night. Karissa NEVES
[2018-04-04 10:37] LABS: BASO # 0.1 x10^3/uL (0.0-0.2); BASO % 2 % (0-3); EOS # 0.1 x10^3/uL (0.0-0.7); EOS % 1 % (0-3); HEMATOCRIT 30.9 % (36.0-47.0); HEMOGLOBIN 10.2 g/dL (12.0-15.5); LYMPH # 1.5 x10^3/uL (1.0-4.8); LYMPH % 19 % (24-48); MEAN CORPUSCULAR HEMOGLOBIN 29 pg (25-35); MEAN CORPUSCULAR HGB CONC 33 g/dL (31-37); MEAN CORPUSCULAR VOLUME 87 fL (79-100); MONO # 0.7 x10^3/uL (0.0-1.1); MONO % 9 % (0-9); NEUT # 5.3 x10^3uL (1.8-7.7); NEUT % 69 % (31-73); PLATELET COUNT 392 x10^3/uL (140-400); RED BLOOD COUNT 3.56 x10^6/uL (3.50-5.40); RED CELL DISTRIBUTION WIDTH 18.3 % (11.5-14.5); WHITE BLOOD COUNT 7.7 x10^3/uL (4.0-11.0)
[2018-04-04 10:39] VITALS: BP 109/65
[2018-04-04 10:47] LABS: CALCIUM 8.5 mg/dL (8.5-10.1); CREATININE 0.5 mg/dL (0.6-1.0); GFR 120.9; POTASSIUM 4.2 mmol/L (3.5-5.1)
[2018-04-04 15:53] VITALS: BP 121/74
[2018-04-04 19:15] VITALS: BP 103/65
--- NOTE | 2018-04-04 19:47 | PDOC1 ---
History and Physical Date of Admission: Date of Admission: April 03, 2018 Chief Complaint: Chief Complain: Abdominal pain Source: Source: Caregiver, Chart review, Patient HPI: HPI: 72-year-old female with history of rheumatoid arthritis and chronic pain with opiate dependence presented to the emergency department complaining of abdominal pain. Patient reported her abdominal pain and been present for the past day progressively worsening described as fullness and aching, severe. She has history of similar symptoms with chronic opiate associated constipation and small bowel obstructions in the past. She had a recent admission at [facility] with small bowel obstruction reports she had cardiac workup at that time. Abnormal labs included potassium of 3.3, albumin 1.9, troponin 0.111 , and urinalysis grossly positive for infection. She received Rocephin intravenously as well as IV hydration and fentanyl for discomfort. EKG was sinus rhythm with T inversions in the anterior leads no ST elevation. Chest x- ray was unremarkable. Persistently denies chest pain and dyspnea. CT abdomen and pelvis: IMPRESSION: 1. Trace bilateral pleural effusions. Consolidations in the bilateral lower lobes with air bronchograms. Considerations include aspiration, pneumonia, or atelectasis. 2. Proximal gastric wall thickening and mucosal hyperenhancement suggestive of nonspecific gastritis. 3. Large colon stool volume. 4. Stable right kidney atrophy, caliectasis, and staghorn calculus. No inflammatory changes of the right kidney are identified to suggest xanthogranulomatous pyelonephritis. 5. Liver is heterogeneous. Considerations include heterogeneous fatty infiltration or passive hepatic congestion versus infiltrative process. 6. Anasarca. The patient reported that her troponin was chronically elevated and that she had had a negative cardiac workup at [place] weeks ago. She was admitted to relieve fecal impaction and for pain control along with treatment for her urinary tract infection and possible community-acquired pneumonia.. Cardiology consulted due to the elevated troponin. Mag citrate and glycerin suppositories along with RN digital fecal impaction reportedly produce multiple large bowel movements throughout the night. Although she received potassium supplementation it remains unchanged today likely due to the consistent GI losses. I find her lying in bed she reports that she is feeling much better. Still feels some lower abdominal soreness however it is significantly improved. She's also complaining of some mild discomfort at the anus from the irritation. Cardiology has evaluated the patient and at this point we are awaiting records from [facility]. Patient denies any current questions, new or worsening complaints. Past Medical History: GI: Constipation (recurrent bowel obstructions), GERD Musculoskeletal: Osteoarthritis Rheumatologic: Rheumatoid arthritis ENT: Allergic rhinitis Renal/: Urinary Incontinence (stress incontinence) Endocrine: Other (vitamin D deficiency) Past Surgical History: PSH: Cholecystectomy, total hip and knee replacements, tonsillectomy Family History: Social History: Other (patient lives alone in an apartment has a daily caregiver) Social History: Smoke: No Alcohol: none Drugs: None Allergies: Allergies: Coded Allergies: codeine (Verified Allergy, Intermediate, 04/04/18) shrimp (Verified Allergy, Intermediate, 04/04/18) Current Medications: Current Medications: Current Medications Medications (Trade) Dose Ordered Sig/Graciela Start Time Stop Time Status Last Admin Dose Admin Acetaminophen/ Hydrocodone Bitart (Lortab 5/325) 1 tab 1X ONCE 04/03/18 17:00 04/03/18 17:01 DC Aspirin (Aspirin Enteric Coated) 81 mg DAILYWBKFT 04/04/18 09:30 Azithromycin 500 mg/Sodium Chloride 250 ml @ 250 mls/hr Q24H 04/03/18 20:30 04/03/18 21:00 250 MLS/HR Bisacodyl (Dulcolax Supp) 10 mg STK-MED ONCE 04/03/18 18:23 04/03/18 18:24 DC 04/03/18 18:26 10 MG Ceftriaxone Sodium 1 gm/ Sodium Chloride 50 ml @ 100 mls/hr Q24H 04/04/18 16:00 04/04/18 16:42 100 MLS/HR Ceftriaxone Sodium (Rocephin) 1 gm STK-MED ONCE 04/03/18 17:03 04/03/18 17:04 DC Cetirizine HCl (ZyrTEC) 10 mg DAILY 04/04/18 09:00 04/04/18 08:24 10 MG Famotidine (Pepcid Vial) 20 mg Q12HR 04/03/18 21:00 04/04/18 08:24 20 MG Fentanyl Citrate (Fentanyl 5ml Vial) 150 mcg 1X ONCE 04/03/18 11:10 04/03/18 11:11 DC 04/03/18 11:16 150 MCG Glycerin (Sani-Supp Adult) 1 supp PRN DAILY PRN 10/24/18 20:45 Hydromorphone HCl (Dilaudid) 1 mg PRN Q2HR PRN 04/03/18 20:30 04/04/18 15:49 1 MG Iohexol (Omnipaque 300 Mg/ml) 75 ml 1X ONCE 04/03/18 13:20 04/03/18 13:21 DC Lactobacillus Rhamnosus (Culturelle) 1 cap BID 04/04/18 21:00 Magnesium Hydroxide (Milk Of Magnesia) 2,400 mg PRN Q12HR PRN 04/03/18 18:00 Magnesium Citrate (Citroma) 296 ml PRN 1X PRN 04/03/18 20:45 Metoprolol Tartrate (Lopressor) 25 mg BID 04/04/18 09:00 Ondansetron HCl (Zofran) 4 mg PRN Q4HRS PRN 04/03/18 16:30 04/04/18 16:29 DC 04/03/18 17:07 4 MG Potassium Chloride (Klor-Con) 20 meq STK-MED ONCE 04/03/18 20:15 04/03/18 20:16 DC Sodium Chloride 1,000 ml @ 100 mls/hr Q10H 04/03/18 18:30 04/04/18 19:27 100 MLS/HR ROS: ROS: Constitutional: No fever or chills Eyes: No eye pain or blurred vision Skin: No rash or itching Cardiovascular: No chest pain, syncope, palpitations, dyspnea on exertion, or edema Respiratory: No cough or difficulty breathing Gastrointestinal: See history of present illness Neurologic: No headaches or focal neurologic deficits Endocrine: No heat or cold intolerance Genitourinary: No new incontinence or hematuria Musculoskeletal: See history of present illness Lymphatics: No enlarged lymph nodes Psychiatric: No anxiety or depression PE: PE: Gen.: Alert, pleasant, sitting up in bed with her legs elevated in no apparent distress HEENT: Normocephalic atraumatic, oral mucosa pink and moist Neck: Supple, no lymphadenopathy, nontender Cardiovascular: Normal S1 and S2 no murmurs Pulmonary: Lungs are clear bilaterally with good air movement no respiratory distress Abdomen: Soft and nondistended, very mild generalized tenderness no rebound or guard, bowel sounds present no masses Extremities: Chronic arthritic changes noted Neuro: Alert and oriented 3, cranial nerves II through XII grossly intact, no lateralizing neuro deficits Skin: Warm, dry areas of hypopigmentation Vitals: Vitals: Vital Signs Date Time Temp Pulse Resp B/P (MAP) Pulse Ox O2 Delivery O2 Flow Rate FiO2 04/04/18 16:19 Room Air 04/04/18 15:53 98.6 98 18 121/74 (90) 92 Labs: Labs: Laboratory Tests Test 04/03/18 10:57 04/03/18 11:37 04/03/18 12:54 04/03/18 14:16 White Blood Count 8.8 x10^3/uL (4.0-11.0) Red Blood Count 4.48 x10^6/uL (3.50-5.40) Hemoglobin 12.7 g/dL (12.0-15.5) Hematocrit 38.8 % (36.0-47.0) Mean Corpuscular Volume 87 fL (79-100) Mean Corpuscular Hemoglobin 28 pg (25-35) Mean Corpuscular Hemoglobin Concent 33 g/dL (31-37) Red Cell Distribution Width 18.0 % (11.5-14.5) Platelet Count 453 x10^3/uL (140-400) Neutrophils (%) (Auto) 88 % (31-73) Lymphocytes (%) (Auto) 7 % (24-48) Monocytes (%) (Auto) 4 % (0-9) Eosinophils (%) (Auto) 0 % (0-3) Basophils (%) (Auto) 1 % (0-3) Neutrophils # (Auto) 7.8 x10^3uL (1.8-7.7) Lymphocytes # (Auto) 0.6 x10^3/uL (1.0-4.8) Monocytes # (Auto) 0.3 x10^3/uL (0.0-1.1) Eosinophils # (Auto) 0.0 x10^3/uL (0.0-0.7) Basophils # (Auto) 0.1 x10^3/uL (0.0-0.2) Sodium Level 138 mmol/L (136-145) Potassium Level 3.3 mmol/L (3.5-5.1) Chloride Level 106 mmol/L (98-107) Carbon Dioxide Level 21 mmol/L (21-32) Anion Gap 11 (6-14) Blood Urea Nitrogen 8 mg/dL (7-20) Creatinine 0.4 mg/dL (0.6-1.0) Estimated GFR (Cockcroft-Gault) 156.5 BUN/Creatinine Ratio 20 (6-20) Glucose Level 111 mg/dL (70-99) Calcium Level 8.3 mg/dL (8.5-10.1) Total Bilirubin 0.4 mg/dL (0.2-1.0) Aspartate Amino Transf (AST/SGOT) 67 U/L (15-37) Alanine Aminotransferase (ALT/SGPT) 50 U/L (14-59) Alkaline Phosphatase 65 U/L (46-116) Troponin I Quantitative 0.111 ng/mL (0-0.055) 0.093 ng/mL (0-0.055) Total Protein 7.4 g/dL (6.4-8.2) Albumin 1.9 g/dL (3.4-5.0) Albumin/Globulin Ratio 0.3 (1.0-1.7) Lipase 65 U/L (73-393) Urine Collection Type U cath Urine Color Yellow Urine Clarity Cloudy Urine pH 6.0 Urine Specific [place] 1.020 Urine Protein 30 mg/dl (NEG-TRACE) Urine Glucose (UA) Neg mg/dL (NEG) Urine Ketones (Stick) 80 mg/dL (NEG) Urine Blood Small (NEG) Urine Nitrite Neg (NEG) Urine Bilirubin Neg (NEG) Urine Urobilinogen Dipstick 0.2 mg/dL (0.2 mg/dL) Urine Leukocyte Esterase Large (NEG) Urine RBC 6-10 /HPF (0-2) Urine WBC >40 /HPF (0-4) Urine Squamous Epithelial Cells Few /LPF Urine Amorphous Sediment Present /HPF Urine Bacteria Few /HPF (0-FEW) Urine Hyaline Casts Occ /HPF Urine Mucus Slight /LPF Test 04/04/18 10:15 White Blood Count 7.7 x10^3/uL (4.0-11.0) Red Blood Count 3.56 x10^6/uL (3.50-5.40) Hemoglobin 10.2 g/dL (12.0-15.5) Hematocrit 30.9 % (36.0-47.0) Mean Corpuscular Volume 87 fL (79-100) Mean Corpuscular Hemoglobin 29 pg (25-35) Mean Corpuscular Hemoglobin Concent 33 g/dL (31-37) Red Cell Distribution Width 18.3 % (11.5-14.5) Platelet Count 392 x10^3/uL (140-400) Neutrophils (%) (Auto) 69 % (31-73) Lymphocytes (%) (Auto) 19 % (24-48) Monocytes (%) (Auto) 9 % (0-9) Eosinophils (%) (Auto) 1 % (0-3) Basophils (%) (Auto) 2 % (0-3) Neutrophils # (Auto) 5.3 x10^3uL (1.8-7.7) Lymphocytes # (Auto) 1.5 x10^3/uL (1.0-4.8) Monocytes # (Auto) 0.7 x10^3/uL (0.0-1.1) Eosinophils # (Auto) 0.1 x10^3/uL (0.0-0.7) Basophils # (Auto) 0.1 x10^3/uL (0.0-0.2) Sodium Level 136 mmol/L (136-145) Potassium Level 4.2 mmol/L (3.5-5.1) Chloride Level 107 mmol/L (98-107) Carbon Dioxide Level 26 mmol/L (21-32) Anion Gap 3 (6-14) Blood Urea Nitrogen 10 mg/dL (7-20) Creatinine 0.5 mg/dL (0.6-1.0) Estimated GFR (Cockcroft-Gault) 120.9 Glucose Level 112 mg/dL (70-99) Calcium Level 8.5 mg/dL (8.5-10.1) Troponin I Quantitative 0.094 ng/mL (0-0.055) Triglycerides Level 81 mg/dL (0-150) Cholesterol Level 144 mg/dL (0-200) LDL Cholesterol, Calculated 96 mg/dL (0-100) VLDL Cholesterol, Calculated 16 mg/dL (0-40) Non-HDL Cholesterol Calculated 112 mg/dL (0-129) HDL Cholesterol 32 mg/dL (40-60) Cholesterol/HDL Ratio 4.0 VTE Prophylaxis: VTE Prophylaxis Devices: No VTE Pharmacological Prophylaxi: No Assessment/Plan: A/P: Abdominal pain Opiate dependence with opiate associated constipation and fecal impaction Rheumatoid arthritis with chronic pain Hypokalemia Elevated troponin Urinary tract infection Atelectasis versus bibasilar community-acquired pneumonia Await records from [place], cardiology team assistance appreciated. If no further cardiac workup indicated plan for discharge home tomorrow with [facility]. Continue pain control with Dilaudid, patient's home medication. Electrolyte protocol, Rocephin and Zithromax for UTI and CAP. Patient has been ambulatory and thus DVT prophylaxis unnecessary RIP ALVARENGA DO Apr 04, 2018 19:47
[2018-04-04] MEDS: AZITHROMYCIN 500 MG in IV NORMAL SALINE 250ML 250 ML IV SCH (19:56)
[2018-04-04] MEDS: LACTOBACILLUS RHAMNOSUS GG 1 CAPSULE. PO SCH (19:56)
[2018-04-05] MEDS: HYDROmorphone PF 1 MG/ML DISP.SYRIN IV PRN ×3 (05:06→19:48)
[2018-04-05] MEDS: IV NORMAL SALINE 1,000ML 1,000 ML IV SCH ×2 (05:08→19:39)
[2018-04-05 05:42] VITALS: BP 116/68
[2018-04-05 06:01] LABS: BASO # 0.1 x10^3/uL (0.0-0.2); BASO % 1 % (0-3); EOS # 0.2 x10^3/uL (0.0-0.7); EOS % 3 % (0-3); HEMATOCRIT 33.2 % (36.0-47.0); HEMOGLOBIN 10.5 g/dL (12.0-15.5); LYMPH # 1.9 x10^3/uL (1.0-4.8); LYMPH % 30 % (24-48); MEAN CORPUSCULAR HEMOGLOBIN 28 pg (25-35); MEAN CORPUSCULAR HGB CONC 32 g/dL (31-37); MEAN CORPUSCULAR VOLUME 87 fL (79-100); MONO # 0.7 x10^3/uL (0.0-1.1); MONO % 12 % (0-9); NEUT # 3.4 x10^3uL (1.8-7.7); NEUT % 55 % (31-73); PLATELET COUNT 344 x10^3/uL (140-400); RED BLOOD COUNT 3.81 x10^6/uL (3.50-5.40); RED CELL DISTRIBUTION WIDTH 17.7 % (11.5-14.5); WHITE BLOOD COUNT 6.2 x10^3/uL (4.0-11.0)
[2018-04-05 06:09] LABS: CREATININE 0.4 mg/dL (0.6-1.0); GFR 156.5
[2018-04-05] MEDS: ASPIRIN ENTERIC COATED 81 MG TABLET.DR. PO SCH (08:00)
[2018-04-05] MEDS: FAMOTIDINE 20 MG/2 ML VIAL IVP SCH ×2 (08:32→19:38)
[2018-04-05] MEDS: LACTOBACILLUS RHAMNOSUS GG 1 CAPSULE. PO SCH ×2 (08:32→19:38)
[2018-04-05] MEDS: CETIRIZINE HCL 10 MG TABLET PO SCH (08:32)
[2018-04-05] MEDS: METOPROLOL TART IMMED RELEASE 25 MG TABLET PO SCH ×2 (08:36→19:38)
--- NOTE | 2018-04-05 10:55 | PDOC ---
PROGRESS NOTES Diagnosis Problem Problems Medical Problems: (1) Abdominal pain Status: Acute (2) Fecal impaction Status: Acute (3) Gastritis Status: Acute (4) Nausea & vomiting Status: Acute (5) Urinary tract infection Status: Acute Assessment Problems Medical Problems: (1) Abdominal pain Status: Acute (2) Fecal impaction Status: Acute (3) Gastritis Status: Acute (4) Nausea & vomiting Status: Acute (5) Urinary tract infection Status: Acute 1. troponin elevation - Mild elevation consistent with NSTEMI. Recent (within the last month) echo, [place] [facility] [place] and still pending. She has no anginal symptoms. Suggest continued medical mgmt pending review of records. 2. nausea/vomiting/abdominal pain with recent impaction and constipation issues. low grade temp this am. mgmt per PCP. 3. anemia -per PCP. 4. hypokalemia - now within normal limits 5. dyslipidemia - LDL <100 Subjective no chest pain, no dyspnea, no palpitations. Objective Vital Signs Date Time Temp Pulse Resp B/P (MAP) Pulse Ox O2 Delivery O2 Flow Rate FiO2 04/05/18 09:07 98 Room Air 04/05/18 08:37 20 04/05/18 08:36 103 116/68 04/05/18 05:42 99.1 Intake and Output 04/05/18 07:00 Intake Total 4469 ml Output Total 350 ml Balance 4119 ml Intake Oral 2240 ml IV Total 2229 ml Output Urine Total 350 ml # Bowel Movements 4 Abdomen: Normal bowel sounds, Soft Heart: Normal S1, Normal S2, Other (no gallops, clicks or rubs) Extremities: No cyanosis General: Alert, Oriented X3, Cooperative, No acute distress Lungs: Other (decreased bases) Neuro: Normal speech Psych/Mental Status: Mental status NL, Mood NL Review of Relevant I have reviewed the following items vasquez (where applicable) has been applied. Labs Laboratory Tests Test 04/03/18 10:57 04/03/18 11:37 04/03/18 12:54 04/03/18 14:16 White Blood Count 8.8 x10^3/uL (4.0-11.0) Red Blood Count 4.48 x10^6/uL (3.50-5.40) Hemoglobin 12.7 g/dL (12.0-15.5) Hematocrit 38.8 % (36.0-47.0) Mean Corpuscular Volume 87 fL (79-100) Mean Corpuscular Hemoglobin 28 pg (25-35) Mean Corpuscular Hemoglobin Concent 33 g/dL (31-37) Red Cell Distribution Width 18.0 % (11.5-14.5) Platelet Count 453 x10^3/uL (140-400) Neutrophils (%) (Auto) 88 % (31-73) Lymphocytes (%) (Auto) 7 % (24-48) Monocytes (%) (Auto) 4 % (0-9) Eosinophils (%) (Auto) 0 % (0-3) Basophils (%) (Auto) 1 % (0-3) Neutrophils # (Auto) 7.8 x10^3uL (1.8-7.7) Lymphocytes # (Auto) 0.6 x10^3/uL (1.0-4.8) Monocytes # (Auto) 0.3 x10^3/uL (0.0-1.1) Eosinophils # (Auto) 0.0 x10^3/uL (0.0-0.7) Basophils # (Auto) 0.1 x10^3/uL (0.0-0.2) Sodium Level 138 mmol/L (136-145) Potassium Level 3.3 mmol/L (3.5-5.1) Chloride Level 106 mmol/L (98-107) Carbon Dioxide Level 21 mmol/L (21-32) Anion Gap 11 (6-14) Blood Urea Nitrogen 8 mg/dL (7-20) Creatinine 0.4 mg/dL (0.6-1.0) Estimated GFR (Cockcroft-Gault) 156.5 BUN/Creatinine Ratio 20 (6-20) Glucose Level 111 mg/dL (70-99) Calcium Level 8.3 mg/dL (8.5-10.1) Total Bilirubin 0.4 mg/dL (0.2-1.0) Aspartate Amino Transf (AST/SGOT) 67 U/L (15-37) Alanine Aminotransferase (ALT/SGPT) 50 U/L (14-59) Alkaline Phosphatase 65 U/L (46-116) Troponin I Quantitative 0.111 ng/mL (0-0.055) 0.093 ng/mL (0-0.055) Total Protein 7.4 g/dL (6.4-8.2) Albumin 1.9 g/dL (3.4-5.0) Albumin/Globulin Ratio 0.3 (1.0-1.7) Lipase 65 U/L (73-393) Urine Collection Type U cath Urine Color Yellow Urine Clarity Cloudy Urine pH 6.0 Urine Specific [place] 1.020 Urine Protein 30 mg/dl (NEG-TRACE) Urine Glucose (UA) Neg mg/dL (NEG) Urine Ketones (Stick) 80 mg/dL (NEG) Urine Blood Small (NEG) Urine Nitrite Neg (NEG) Urine Bilirubin Neg (NEG) Urine Urobilinogen Dipstick 0.2 mg/dL (0.2 mg/dL) Urine Leukocyte Esterase Large (NEG) Urine RBC 6-10 /HPF (0-2) Urine WBC >40 /HPF (0-4) Urine Squamous Epithelial Cells Few /LPF Urine Amorphous Sediment Present /HPF Urine Bacteria Few /HPF (0-FEW) Urine Hyaline Casts Occ /HPF Urine Mucus Slight /LPF Test 04/04/18 10:15 04/05/18 05:50 White Blood Count 7.7 x10^3/uL (4.0-11.0) 6.2 x10^3/uL (4.0-11.0) Red Blood Count 3.56 x10^6/uL (3.50-5.40) 3.81 x10^6/uL (3.50-5.40) Hemoglobin 10.2 g/dL (12.0-15.5) 10.5 g/dL (12.0-15.5) Hematocrit 30.9 % (36.0-47.0) 33.2 % (36.0-47.0) Mean Corpuscular Volume 87 fL (79-100) 87 fL (79-100) Mean Corpuscular Hemoglobin 29 pg (25-35) 28 pg (25-35) Mean Corpuscular Hemoglobin Concent 33 g/dL (31-37) 32 g/dL (31-37) Red Cell Distribution Width 18.3 % (11.5-14.5) 17.7 % (11.5-14.5) Platelet Count 392 x10^3/uL (140-400) 344 x10^3/uL (140-400) Neutrophils (%) (Auto) 69 % (31-73) 55 % (31-73) Lymphocytes (%) (Auto) 19 % (24-48) 30 % (24-48) Monocytes (%) (Auto) 9 % (0-9) 12 % (0-9) Eosinophils (%) (Auto) 1 % (0-3) 3 % (0-3) Basophils (%) (Auto) 2 % (0-3) 1 % (0-3) Neutrophils # (Auto) 5.3 x10^3uL (1.8-7.7) 3.4 x10^3uL (1.8-7.7) Lymphocytes # (Auto) 1.5 x10^3/uL (1.0-4.8) 1.9 x10^3/uL (1.0-4.8) Monocytes # (Auto) 0.7 x10^3/uL (0.0-1.1) 0.7 x10^3/uL (0.0-1.1) Eosinophils # (Auto) 0.1 x10^3/uL (0.0-0.7) 0.2 x10^3/uL (0.0-0.7) Basophils # (Auto) 0.1 x10^3/uL (0.0-0.2) 0.1 x10^3/uL (0.0-0.2) Sodium Level 136 mmol/L (136-145) 136 mmol/L (136-145) Potassium Level 4.2 mmol/L (3.5-5.1) 4.0 mmol/L (3.5-5.1) Chloride Level 107 mmol/L (98-107) 108 mmol/L (98-107) Carbon Dioxide Level 26 mmol/L (21-32) 22 mmol/L (21-32) Anion Gap 3 (6-14) 6 (6-14) Blood Urea Nitrogen 10 mg/dL (7-20) 6 mg/dL (7-20) Creatinine 0.5 mg/dL (0.6-1.0) 0.4 mg/dL (0.6-1.0) Estimated GFR (Cockcroft-Gault) 120.9 156.5 Glucose Level 112 mg/dL (70-99) 93 mg/dL (70-99) Calcium Level 8.5 mg/dL (8.5-10.1) 8.0 mg/dL (8.5-10.1) Troponin I Quantitative 0.094 ng/mL (0-0.055) Triglycerides Level 81 mg/dL (0-150) Cholesterol Level 144 mg/dL (0-200) LDL Cholesterol, Calculated 96 mg/dL (0-100) VLDL Cholesterol, Calculated 16 mg/dL (0-40) Non-HDL Cholesterol Calculated 112 mg/dL (0-129) HDL Cholesterol 32 mg/dL (40-60) Cholesterol/HDL Ratio 4.0 Medications Current Medications Fentanyl Citrate (Fentanyl 5ml Vial) 150 mcg 1X ONCE IV Last administered on 04/03/18at 11:16; Start 04/03/18 at 11:10; Stop 04/03/18 at 11:11; Status DC Ondansetron HCl (Zofran) 4 mg 1X ONCE IV Last administered on 04/03/18at 11:16 ; Start 04/03/18 at 11:10; Stop 04/03/18 at 11:11; Status DC Sodium Chloride 1,000 ml @ 1,000 mls/hr 1X ONCE IV Last administered on 04/03at 11:15; Start 04/03/18 at 10:45; Stop 04/03/18 at 11:44; Status DC Iohexol (Omnipaque 300 Mg/ml) 75 ml 1X ONCE IV ; Start 04/03/18 at 13:20; Stop 04/03/18 at 13:21; Status DC Ceftriaxone Sodium 1 gm/ Sodium Chloride 50 ml @ 100 mls/hr 1X ONCE IV Last administered on 04/03/18at 17:07; Start 04/03/18 at 16:45; Stop 04/03/18 at 17 :14; Status DC Ondansetron HCl (Zofran) 4 mg PRN Q4HRS PRN IV NAUSEA/VOMITING Last administered on 04/03/18at 17:07; Start 04/03/18 at 16:30; Stop 04/04/18 at 16 :29; Status DC Famotidine (Pepcid Vial) 20 mg Q12HR IVP Last administered on 04/05/18at 08:32 ; Start 04/03/18 at 21:00 Acetaminophen/ Hydrocodone Bitart (Lortab 5/325) 1 tab 1X ONCE PO ; Start at 17:00; Stop 04/03/18 at 17:01; Status DC Sodium Chloride 50 ml @ As Directed STK-MED ONCE .ROUTE ; Start 04/03/18 at 17: 03; Stop 04/03/18 at 17:04; Status DC Ceftriaxone Sodium (Rocephin) 1 gm STK-MED ONCE IV ; Start 04/03/18 at 17:03; Stop 04/03/18 at 17:04; Status DC Sodium Chloride 1,000 ml @ 100 mls/hr Q10H IV ; Start 04/03/18 at 17:30; Stop 04/03/18 at 18:18; Status DC Magnesium Hydroxide (Milk Of Magnesia) 2,400 mg PRN Q12HR PRN PO CONSTIPATION; Start 04/03/18 at 18:00 Bisacodyl (Dulcolax Supp) 10 mg PRN Q12HR PRN [place] CONSTIPATION Last administered on 04/05/18at 05:04; Start 04/03/18 at 18:00 Hydromorphone HCl (Dilaudid) 0.5 mg PRN Q4HRS PRN IVP PAIN Last administered on 04/03/18at 18:26; Start 04/03/18 at 18:00 Sodium Chloride 1,000 ml @ 100 mls/hr Q10H IV Last administered on 04/05/18at 05:08; Start 04/03/18 at 18:30 Bisacodyl (Dulcolax Supp) 10 mg STK-MED ONCE .ROUTE Last administered on at 18:26; Start 04/03/18 at 18:23; Stop 04/03/18 at 18:24; Status DC Ceftriaxone Sodium 1 gm/ Sodium Chloride 50 ml @ 100 mls/hr Q24H IV Last administered on 04/04/18at 16:42; Start 04/04/18 at 16:00 Magnesium Citrate (Citroma) 296 ml 1X ONCE PO Last administered on 04/03/18at 20:18; Start 04/03/18 at 20:00; Stop 04/03/18 at 20:01; Status DC Potassium Chloride (Klor-Con) 40 meq 1X ONCE PO Last administered on at 20:18; Start 04/03/18 at 20:15; Stop 04/03/18 at 20:16; Status DC Potassium Chloride (Klor-Con) 20 meq STK-MED ONCE PO ; Start 04/03/18 at 20:15 ; Stop 04/03/18 at 20:16; Status DC Hydromorphone HCl (Dilaudid) 1 mg PRN Q2HR PRN IV PAIN Last administered on at 08:37; Start 04/03/18 at 20:30 Azithromycin 500 mg/Sodium Chloride 250 ml @ 250 mls/hr Q24H IV Last administered on 04/04/18at 19:56; Start 04/03/18 at 20:30 Magnesium Citrate (Citroma) 296 ml PRN 1X PRN PO CONSTIPATION; Start 04/03/18 at 20:45 Glycerin (Sani-Supp Adult) 1 supp 1X ONCE MN Last administered on 04/03/18at 21:59; Start 04/03/18 at 20:45; Stop 04/03/18 at 21:00; Status DC Glycerin (Sani-Supp Adult) 1 supp PRN DAILY PRN [place] CONSTIPATION; Start at 20:45 Cetirizine HCl (ZyrTEC) 10 mg DAILY PO Last administered on 04/05/18at 08:32; Start 04/04/18 at 09:00 Aspirin (Aspirin Enteric Coated) 81 mg DAILYWBKFT PO ; Start 04/04/18 at 09:30 Metoprolol Tartrate (Lopressor) 25 mg BID PO Last administered on 04/05/18at 08 :36; Start 04/04/18 at 09:00 Lactobacillus Rhamnosus (Culturelle) 1 cap BID PO Last administered on at 08:32; Start 04/04/18 at 21:00 Active Scripts Active Reported Miralax (Polyethylene Glycol 3350) 17 Gm Powd.pack 1 Packet PO DAILY Vitamin D2 (Ergocalciferol (Vitamin D2)) 50,000 Unit Capsule 1 Cap PO WEEKLY Claritin (Loratadine) 10 Mg Tablet 1 Tab PO DAILY Folic Acid 1 Mg Tablet 1 Tab PO DAILY Montelukast Sodium Tablet (Montelukast Sodium) 10 Mg Tablet 10 Mg PO HS Myrbetriq (Mirabegron) 25 Mg Tab.er.24h 25 Mg PO DAILY Omeprazole 20 Mg Capsule.dr 1 Cap PO DAILY DURAGESIC 50mcg/hr (Fentanyl) 1 Each Patch.td72 1 Patch TP Q3DAYS Dilaudid (Hydromorphone Hcl) 2 Mg Tablet 2 Mg PO TID PRN LAST DOSE GIVEN: DATE: TIME: NEXT DOSE DUE: DATE: TIME: Vitals/I & O Vital Sign - Last 24 Hours 04/04/18 04/04/18 04/04/18 04/04/18 10:39 15:49 15:53 19:15 Temp 98.5 98.6 98.6 Pulse 103 98 110 Resp 18 18 20 B/P (MAP) 109/65 (80) 121/74 (90) 103/65 (78) Pulse Ox 92 92 92 95 O2 Delivery Room Air Room Air Room Air Room Air 04/04/18 04/04/18 04/04/18 04/04/18 19:35 19:58 19:59 23:24 Pulse 53 107 Resp 18 B/P (MAP) 103/65 O2 Delivery Room Air Room Air 04/05/18 04/05/18 04/05/18 04/05/18 05:06 05:40 05:42 08:15 Temp 99.1 Pulse 103 Resp 18 18 20 B/P (MAP) 116/68 (84) Pulse Ox 98 O2 Delivery Room Air Room Air Room Air 04/05/18 04/05/18 04/05/18 08:36 08:37 09:07 Pulse 103 Resp 20 B/P (MAP) 116/68 Pulse Ox 98 98 O2 Delivery Room Air Room Air Intake and Output 04/04/18 04/04/18 04/05/18 15:00 23:00 07:00 Intake Total 1250 ml 920 ml 2299 ml Output Total 350 ml Balance 1250 ml 920 ml 1949 ml ROCAEL SIMON APRN Apr 05, 2018 10:55
[2018-04-05 11:32] VITALS: BP 147/68
--- NOTE | 2018-04-05 15:32 | PDOC3 ---
Discharge Summary Visit Information: Final Diagnosis Problems Medical Problems: (1) Abdominal pain Status: Acute (2) Fecal impaction Status: Acute (3) Gastritis Status: Acute (4) Nausea & vomiting Status: Acute (5) Urinary tract infection Status: Acute Problems: (1) Abdominal pain Qualifiers: Qualified Codes: R10.84 - Generalized abdominal pain (2) Fecal impaction (3) Chronic use of opiate for therapeutic purpose (4) Rheumatoid arthritis Qualifiers: Qualified Codes: M05.79 - Rheumatoid arthritis with rheumatoid factor of multiple sites without organ or systems involvement (5) Chronic pain Qualifiers: Qualified Codes: G89.4 - Chronic pain syndrome (6) Hypokalemia (7) Urinary tract infection Qualifiers: Qualified Codes: N30.00 - Acute cystitis without hematuria (8) Elevated troponin I measurement (9) Severe malnutrition (10) Normocytic anemia Brief Hospital Course: Allergies: Allergies Coded Allergies Type Severity Reaction Last Updated Verified codeine Allergy Intermediate 04/04/18 Yes shrimp Allergy Intermediate 04/04/18 Yes Vital Signs: Vital Signs Date Time Temp Pulse Resp B/P (MAP) Pulse Ox O2 Delivery O2 Flow Rate FiO2 04/05/18 11:32 98.3 66 18 147/68 (94) 98 Room Air Lab Results: Laboratory Tests Test 04/04/18 10:15 04/05/18 05:50 White Blood Count 7.7 x10^3/uL (4.0-11.0) 6.2 x10^3/uL (4.0-11.0) Red Blood Count 3.56 x10^6/uL (3.50-5.40) 3.81 x10^6/uL (3.50-5.40) Hemoglobin 10.2 g/dL (12.0-15.5) 10.5 g/dL (12.0-15.5) Hematocrit 30.9 % (36.0-47.0) 33.2 % (36.0-47.0) Mean Corpuscular Volume 87 fL (79-100) 87 fL (79-100) Mean Corpuscular Hemoglobin 29 pg (25-35) 28 pg (25-35) Mean Corpuscular Hemoglobin Concent 33 g/dL (31-37) 32 g/dL (31-37) Red Cell Distribution Width 18.3 % (11.5-14.5) 17.7 % (11.5-14.5) Platelet Count 392 x10^3/uL (140-400) 344 x10^3/uL (140-400) Neutrophils (%) (Auto) 69 % (31-73) 55 % (31-73) Lymphocytes (%) (Auto) 19 % (24-48) 30 % (24-48) Monocytes (%) (Auto) 9 % (0-9) 12 % (0-9) Eosinophils (%) (Auto) 1 % (0-3) 3 % (0-3) Basophils (%) (Auto) 2 % (0-3) 1 % (0-3) Neutrophils # (Auto) 5.3 x10^3uL (1.8-7.7) 3.4 x10^3uL (1.8-7.7) Lymphocytes # (Auto) 1.5 x10^3/uL (1.0-4.8) 1.9 x10^3/uL (1.0-4.8) Monocytes # (Auto) 0.7 x10^3/uL (0.0-1.1) 0.7 x10^3/uL (0.0-1.1) Eosinophils # (Auto) 0.1 x10^3/uL (0.0-0.7) 0.2 x10^3/uL (0.0-0.7) Basophils # (Auto) 0.1 x10^3/uL (0.0-0.2) 0.1 x10^3/uL (0.0-0.2) Sodium Level 136 mmol/L (136-145) 136 mmol/L (136-145) Potassium Level 4.2 mmol/L (3.5-5.1) 4.0 mmol/L (3.5-5.1) Chloride Level 107 mmol/L (98-107) 108 mmol/L (98-107) Carbon Dioxide Level 26 mmol/L (21-32) 22 mmol/L (21-32) Anion Gap 3 (6-14) 6 (6-14) Blood Urea Nitrogen 10 mg/dL (7-20) 6 mg/dL (7-20) Creatinine 0.5 mg/dL (0.6-1.0) 0.4 mg/dL (0.6-1.0) Estimated GFR (Cockcroft-Gault) 120.9 156.5 Glucose Level 112 mg/dL (70-99) 93 mg/dL (70-99) Calcium Level 8.5 mg/dL (8.5-10.1) 8.0 mg/dL (8.5-10.1) Troponin I Quantitative 0.094 ng/mL (0-0.055) Triglycerides Level 81 mg/dL (0-150) Cholesterol Level 144 mg/dL (0-200) LDL Cholesterol, Calculated 96 mg/dL (0-100) VLDL Cholesterol, Calculated 16 mg/dL (0-40) Non-HDL Cholesterol Calculated 112 mg/dL (0-129) HDL Cholesterol 32 mg/dL (40-60) Cholesterol/HDL Ratio 4.0 PE: Gen.: Alert, pleasant, no apparent distress HEENT: Normocephalic atraumatic, PERRLA EOMI, no scleral icterus, oral mucosa pink and moist Neck: Supple, no lymphadenopathy, nontender Cardiovascular: Normal S1 and S2 no murmurs Pulmonary: Lungs are clear bilaterally with good air movement no respiratory distress Abdomen: Soft nontender non-distended, bowel sounds present no masses Extremities: No clubbing, cyanosis or edema Neuro: Alert and oriented 3, cranial nerves II through XII grossly intact, no lateralizing neuro deficits Skin: Warm, dry Brief Hospital Course: Ms. Pitt is a 72 old [sex] who presented with [ ] Discharge Information: Home Meds: Reported Medications Polyethylene Glycol 3350 (MIRALAX) 17 Gm Powd.pack, 1 PACKET PO DAILY, #30 PACKET 3 Refills 04/03/18 Ergocalciferol (Vitamin D2) (VITAMIN D2) 50,000 Unit Capsule, 1 CAP PO WEEKLY, # 4 CAP 5 Refills 04/03/18 Loratadine (CLARITIN) 10 Mg Tablet, 1 TAB PO DAILY, #30 TAB 5 Refills 04/03/18 Folic Acid (FOLIC ACID) 1 Mg Tablet, 1 TAB PO DAILY, #90 TAB 1 Refill 04/03/18 Montelukast Sodium (MONTELUKAST SODIUM TABLET) 10 Mg Tablet, 10 MG PO HS for FOR ASTHMA, #30 TAB 0 Refills 04/03/18 Mirabegron (MYRBETRIQ) 25 Mg Tab.er.24h, 25 MG PO DAILY, TAB.SR 04/03/18 Omeprazole (OMEPRAZOLE) 20 Mg Capsule.dr, 1 CAP PO DAILY, #30 CAP 5 Refills 04/03/18 Fentanyl (DURAGESIC 50mcg/hr) 1 Each Patch.td72, 1 PATCH TP Q3DAYS, #10 PATCH 04/03/18 Hydromorphone Hcl (DILAUDID) 2 Mg Tablet, 2 MG PO TID PRN for PAIN LAST DOSE GIVEN: DATE: TIME: NEXT DOSE DUE: DATE: TIME: 04/03/18 RIP ALVARENGA DO Apr 05, 2018 15:32
[2018-04-05] MEDS ORDERED: ASPI-612 PO (15:37)
[2018-04-05] MEDS ORDERED: LUBI24CA7 PO (15:37)
[2018-04-05] MEDS ORDERED: METO25TA4 PO (15:37)
[2018-04-05] MEDS ORDERED: SULF1TAB24 PO (15:37)
[2018-04-05 16:22] VITALS: BP 132/73
[2018-04-05 19:20] VITALS: BP 160/73
[2018-04-05] MEDS: AZITHROMYCIN 500 MG in IV NORMAL SALINE 250ML 250 ML IV SCH (19:38)
--- NOTE | 2018-04-05 20:58 | NUR ---
Patients IV went bad, patient requested that it not not be put back in. Called Dr. Ndiaye he said to leave IV out. New order noted.
[2018-04-05 23:53] VITALS: BP 124/88
[2018-04-06 05:33] VITALS: BP 132/77
[2018-04-06] MEDS ORDERED: HYDROmorphone 2 MG TABLET PO PRN (08:15)
[2018-04-06 08:19] VITALS: BP 132/77
[2018-04-06] MEDS: ASPIRIN ENTERIC COATED 81 MG TABLET.DR. PO SCH (08:19)
[2018-04-06] MEDS: LACTOBACILLUS RHAMNOSUS GG 1 CAPSULE. PO SCH (08:19)
[2018-04-06] MEDS: METOPROLOL TART IMMED RELEASE 25 MG TABLET PO SCH (08:19)
--- NOTE | 2018-04-06 10:52 | NUR ---
Pt discharged home for self care. Pt requested Nunez catheter be discontinued against medical advice. This nurse explained to pt need for nunez was due to urine retention, however pt still wanted catheter removed. This nurse removed catheter with no complications. Pt has a home health aide. Pt left unit in stable condition via gurney accompanied by EMS. Pt given verbal and written discharge, follow up, and medication instructions. Pt gave verbal understanding of instructions.
== END 2018-04-06 09:30 | disposition home or self-care (01) | DRG 280 ==
LOC: ER 10:32 → 1 SOUTH 16:25 → ER 17:19
PROVIDERS: ADMIT Neuromusculoskeletal Medicine & OMM; ATTEND Neuromusculoskeletal Medicine & OMM
DX: I21.4 Non-ST elevation (NSTEMI) myocardial infarction (principal); E43 Unspecified severe protein-calorie malnutrition; F11.20 Opioid dependence, uncomplicated; N30.00 Acute cystitis without hematuria; K56.41 Fecal impaction; D64.9 Anemia, unspecified; E78.5 Hyperlipidemia, unspecified; E87.6 Hypokalemia; G89.4 Chronic pain syndrome; I49.9 Cardiac arrhythmia, unspecified; J45.909 Unspecified asthma, uncomplicated; K21.9 Gastro-esophageal reflux disease without esophagitis; K29.70 Gastritis, unspecified, without bleeding; M05.79 Rheumatoid arthritis with rheumatoid factor of multiple sites without organ or systems involvement; Z96.659 Presence of unspecified artificial knee joint; M19.90 Unspecified osteoarthritis, unspecified site; N20.0 Calculus of kidney; Z96.649 Presence of unspecified artificial hip joint; N26.1 Atrophy of kidney (terminal); T40.605A Adverse effect of unspecified narcotics, initial encounter; Z90.710 Acquired absence of both cervix and uterus; Z68.23 Body mass index [BMI] 23.0-23.9, adult; Z88.8 Allergy status to other drugs, medicaments and biological substances
CPT/HCPCS: 36415; 71045; 74177; 80048; 80053; 80061; 81001; 83690; 84484; 85025; 87086; 93005; 96361; 96374; 96375; 96376; J0456; J0696; J1170; J2405; J3010; J7050; S0028; 99285-25; J7030

== ENCOUNTER 2019-04-25 17:19 | Inpatient (IN) | payer OTHER, MEDICARE ==
[~2019-04-25] VITALS: Ht 157.5 cm; Wt 51.7 kg
[~2019-04-25 17:19] MED LIST: ASPI-612 PO; ERGO500027 PO; FENT1PAT91 TP; FOLI1TAB16 PO; HYDR2TAB31 PO; LORA10TA68 PO; LUBI24CA7 PO; METO25TA4 PO; MIRA25TA PO; MONT10TA80 PO; OMEP20CA16 PO; POLY17PO5 PO; SULF1TAB24 PO
--- NOTE | 2019-04-25 18:06 | PHYS DOC ---
Past History Past Medical History: Arthritis Additional Past Medical Histor: Heart murmur (CELESTE CLIFFORD DO) Past Surgical History: Cholecystectomy, Hip Replacement, Hysterectomy, Knee Replacement, Tonsillectomy (CELESTE CLIFFORD DO) Alcohol Use: None Drug Use: None (CELESTE CLIFFORD DO) Adult General Chief Complaint Chief Complaint: SHORTNESS OF BREATH HPI HPI Patient is a 74 y/o female with a history of a heart murmur, multiple orthopedic surgeries, and RA who presents to the ED with SOB that started 3 weeks ago. She states she has been coughing up greenish phlegm. Denies CP, nausea, vomiting, and fever. Pt normally lives at home with a caregiver. (CELESTE CLIFFORD DO) Review of Systems Review of Systems Constitutional: Denies fever or chills Eyes: Denies redness or eye pain HENT: Denies nasal congestion or sore throat Respiratory: Reports cough with phlegm Cardiovascular: Denies chest pain or palpitations GI: Denies abdominal pain, nausea, or vomiting : Denies dysuria or hematuria Musculoskeletal: Denies back pain Integument: Denies rash or skin lesions Neurologic: Denies headache, focal weakness or sensory changes Complete systems were reviewed and found to be within normal limits, except as documented in this note. (CELESTE CLIFFORD DO) Allergies Allergies Allergies Coded Allergies Type Severity Reaction Last Updated Verified codeine Allergy Intermediate 04/04/18 Yes shrimp Allergy Intermediate 04/04/18 Yes (CELESTE CLIFFORD DO) Physical Exam Physical Exam Constitutional: Well developed, well nourished, no acute distress, non-toxic appearance HENT: Normocephalic, atraumatic, oropharynx moist Eyes: PERRL, EOMI, conjunctiva normal, no discharge Neck: Normal range of motion, no tenderness, supple Cardiovascular: Heart rate normal, regular rhythm, systolic murmur Lungs & Thorax: bilateral wheezes upon inspiration and expiration Skin: vitiligo on bilateral hands Back: No tenderness, no CVA tenderness Extremities: No tenderness, no edema Psychologic: Affect normal, judgement normal, mood normal (CELESTE CLIFFORD DO) EKG EKG ECG @ 1725 on 04/25/19, 112 BPM, NSR, PVC, inverted T waves Same as when compared to 04/03/18 (CELESTE CLIFFORD DO) Radiology/Procedures Radiology/Procedures PROCEDURE: PORTABLE CHEST 1V Exam: Chest one view INDICATION: Dyspnea TECHNIQUE: Frontal view of the chest Comparisons: 04/03/2018 FINDINGS: The cardiomediastinal silhouette is within normal limits. The pulmonary vessels are prominent. Hazy opacities in the lungs bilaterally. No pleural effusion. IMPRESSION: Findings of mild pulmonary edema. Electronically signed by: Courtney Valencia MD (04/25/2019 6:01 PM) [facility] (CELESTE CLIFFORD DO) Course & Med Decision Making Course & Med Decision Making Pt presents with SOB with cough for the past 3 weeks. Hx of COPD. CXR shows with mild pulmonary edema. Labs pending. EKG stable in comparison to prior. Patient stable for sign out Dr. Beebe further evaluation and final disposition. Discussed current findings and plan with patient, who acknowledges understanding and agreement. (CELESTE CLIFFORD DO) Course & Med Decision Making Dr. Beebe's note Received patient at 1800. Agree with previous H&P. Patient still had wheezing after initial breathing treatment so a second nebulizer with albuterol was administered. After the return of laboratory and imaging findings, she was started on IV Lasix. Consultation was made with the hospitalist service for admission. She was admitted in improved condition. Patient appears to have mixed picture of CHF along with her history of COPD. She additionally has an elevated troponin compared to her previous levels. (MEREDITH BEEBE DO) Dragon Disclaimer Dragon Disclaimer This electronic medical record was generated, in whole or in part, using a voice recognition dictation system. (CELESTE CLIFFORD DO) Departure Departure: Impression: Primary Impression: Shortness of breath Additional Impressions: Congestive heart failure Elevated troponin Disposition: ADMITTED INPATIENT Admitting Physician: Melissa Laurent (MEREDITH BEEBE DO) Condition: IMPROVED Referrals: JOYCE CARLOS MD (PCP) Problem Qualifiers Additional Impressions: Congestive heart failure Heart failure type: unspecified Heart failure chronicity: unspecified Qualified Codes: I50.9 - Heart failure, unspecified CELESTE CLIFFORD DO Apr 25, 2019 18:06 MEREDITH BEEBE DO Apr 25, 2019 20:14
[2019-04-25] MEDS ORDERED: IPRATRPIUM/ALBUTEROL 0.5/2.5MG 3 ML NEBU. ONE (18:13)
[2019-04-25] MEDS ORDERED: IPRATRPIUM/ALBUTEROL 0.5/2.5MG 3 ML NEBU. NEB ONE (18:30)
[2019-04-25] MEDS ORDERED: DEXAMETHASONE SOD PHOS 10 MG/ML VIAL IV ONE (18:30)
[2019-04-25] MEDS ORDERED: ASPIRIN 325 MG TABLET PO ONE (18:45)
[2019-04-25 19:14] LABS: BASO % 1 % (0-3); EOS # 0.1 x10^3/uL (0.0-0.7); EOS % 1 % (0-3); HEMATOCRIT 36.3 % (36.0-47.0); HEMOGLOBIN 11.4 g/dL (12.0-15.5); LYMPH # 0.8 x10^3/uL (1.0-4.8); LYMPH % 16 % (24-48); MEAN CORPUSCULAR HEMOGLOBIN 28 pg (25-35); MEAN CORPUSCULAR HGB CONC 31 g/dL (31-37); MEAN CORPUSCULAR VOLUME 90 fL (79-100); MONO # 0.3 x10^3/uL (0.0-1.1); MONO % 7 % (0-9); NEUT # 3.4 x10^3uL (1.8-7.7); NEUT % 74 % (31-73); PLATELET COUNT 190 x10^3/uL (140-400); RED BLOOD COUNT 4.03 x10^6/uL (3.50-5.40); RED CELL DISTRIBUTION WIDTH 16.8 % (11.5-14.5); WHITE BLOOD COUNT 4.7 x10^3/uL (4.0-11.0)
[2019-04-25] MEDS ORDERED: ALBUTEROL SULFATE 2.5 MG/3 ML NEBU. NEB ONE (19:15)
[2019-04-25 19:40] LABS: ALBUMIN/GLOBULIN RATIO 0.5 (1.0-1.7); CALCIUM 9.1 mg/dL (8.5-10.1); CREATININE 0.4 mg/dL (0.6-1.0); GFR 155.6; MAGNESIUM 1.7 mg/dL (1.8-2.4); POTASSIUM 3.9 mmol/L (3.5-5.1); TOTAL BILIRUBIN 0.2 mg/dL (0.2-1.0); TOTAL PROTEIN 8.7 g/dL (6.4-8.2)
--- NOTE | 2019-04-25 19:41 | EKG ---
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
[2019-04-25] MEDS ORDERED: NITROGLYCERIN SUBLINGUAL 0.4 MG BOTTLE OF 25. SL PRN (20:15)
[2019-04-25] MEDS ORDERED: POTASSIUM CHLORIDE 20 MEQ TABLET.ER. PO ONE (20:15)
[2019-04-25] MEDS ORDERED: FUROSEMIDE 40 MG/4 ML VIAL IVP ONE (20:15)
[2019-04-25] MEDS ORDERED: ACETAMINOPHEN 325 MG TABLET PO PRN (20:15)
[2019-04-25] MEDS ORDERED: ONDANSETRON PF 4 MG/2 ML VIAL. IV PRN (20:15)
[2019-04-25 21:54] VITALS: BP 125/78
--- NOTE | 2019-04-25 22:47 | NUR ---
The patient, VLAD ALEGRIA, 74 y/o, F admitted by KIYA GILLETTE MD, was given written information regarding hospital policies, unit procedures and contact persons. Valuables were checked and logged. Call light at bedside. Will continue to monitor.
[2019-04-25] MEDS ORDERED: CHOL500051 PO (23:20)
[2019-04-25] MEDS ORDERED: MONTELUKAST 10 MG TABLET. PO ONE (23:45)
[2019-04-26] VITALS (7 sets, daily range): BP systolic 119–151; BP diastolic 58–84
[2019-04-26] MEDS ORDERED: IPRATRPIUM/ALBUTEROL 0.5/2.5MG 3 ML NEBU. ONE (04:50)
[2019-04-26 05:11] LABS: CALCIUM 9.2 mg/dL (8.5-10.1); CREATININE 0.5 mg/dL (0.6-1.0); GFR 120.3
[2019-04-26] MEDS: IPRATRPIUM/ALBUTEROL 0.5/2.5MG 3 ML NEBU. NEB SCH ×4 (05:21→20:21)
[2019-04-26 05:35] LABS: BASO % 1 % (0-3); EOS % 0 % (0-3); HEMOGLOBIN 11.7 g/dL (12.0-15.5); LYMPH # 0.6 x10^3/uL (1.0-4.8); LYMPH % 28 % (24-48); MEAN CORPUSCULAR HEMOGLOBIN 28 pg (25-35); MEAN CORPUSCULAR HGB CONC 32 g/dL (31-37); MEAN CORPUSCULAR VOLUME 89 fL (79-100); MONO # 0.1 x10^3/uL (0.0-1.1); MONO % 7 % (0-9); NEUT # 1.2 x10^3uL (1.8-7.7); NEUT % 64 % (31-73); PLATELET COUNT 172 x10^3/uL (140-400); RED BLOOD COUNT 4.14 x10^6/uL (3.50-5.40); RED CELL DISTRIBUTION WIDTH 16.5 % (11.5-14.5)
--- NOTE | 2019-04-26 06:51 | NUR ---
Routine [facility] cardio consult called at this time.
[2019-04-26 07:28] LABS: % ATYL 1 % (0-0); % BANDS 3 % (0-9); % LYMPHS 24 % (24-48); % MONOS 10 % (0-10); % SEGS 62 % (35-66)
[2019-04-26 07:29] LABS: PLATELET CLUMP PRESENT; PLT ESTIMATE ADEQUATE (ADEQUATE)
[2019-04-26 07:30] LABS: OVALOCYTES OCC; POLYCHROMASIA SLIGHT; TARGET CELLS OCC
[2019-04-26 07:31] LABS: ANISOCYTOSIS SLIGHT; POIKILOCYTOSIS SLIGHT; TEAR DROP CELLS OCC
[2019-04-26] MEDS ORDERED: VERA240T8 PO (08:06)
[2019-04-26] MEDS ORDERED: HYDR4TAB PO (09:49)
[2019-04-26] MEDS ORDERED: FENT1PAT15 TP (09:49)
--- NOTE | 2019-04-26 12:10 | RAD ---
Exam performed: X-ray left femur and left hip. HISTORY: Fall. DATE OF SERVICE: 04/26/2019. COMPARISON: None available FINDINGS: AP and frog-leg lateral view of the left hip as well as AP and lateral view of the left femur are obtained. Advanced degenerative changes are seen about the left hip joint with subarticular sclerosis. Postoperative changes of total left hip arthroplasty with a longstem intramedullary chuy is seen extending up to the proximal femur. There is no acute fracture. Generalized osteopenia. Soft tissue swelling is noted. IMPRESSION: Postoperative changes about the left knee. Advanced degenerative changes about the left hip joint without acute abnormality. Electronically signed by: Lissy Momin MD (04/26/2019 12:07 PM) [facility]
[2019-04-26 12:59] LABS: THYROID STIM HORMONE (TSH) 1.326 uIU/mL (0.358-3.740)
--- NOTE | 2019-04-26 15:44 | PDOC2 ---
CARDIAC CONSULT DATE OF CONSULT Date Of Consult DATE: 04/26/19 TIME: 15:44 REASON FOR CONSULT Reason for Consult Shortness of breath, elevated troponin. REFERRING PHYSICIAN Referring Physician Dr. Laurent SOURCE Source: Chart review, Patient HPI History of Present Illness The patient is a 74-year-old female who was admitted through the emergency room for 2 weeks of increasing shortness of breath including cough with green sputum by report. The patient denied any typical chest pain. Chest x-ray showed mild pulmonary edema. EKG showed a sinus tachycardia with lateral T wave depression. The patient has been treated with pulmonary medications and has significantly improved. She had minimally elevated troponins initially at 0.2-3 which is now decreased. She is feeling significantly better this morning. There is no documented history of coronary artery disease. PAST MEDICAL HISTORY Cardiovascular: HTN Pulmonary: COPD Rheumatologic: Rheumatoid arthritis PAST SURGICAL HISTORY Past Surgical History: Cholecystectomy, Total hip replacement, Total knee replacement, Tonsillectomy FAMILY HISTORY Family History: Hypertension SOCIAL HISTORY Smoke: No ALCOHOL: none CURRENT MEDICATIONS Current Medications Current Medications Dexamethasone Sodium Phosphate (Decadron) 10 mg 1X ONCE IV Last administered on 04/25/19at 18:45; Start 04/25/19 at 18:30; Stop 04/25/19 at 18:31; Status DC Albuterol/ Ipratropium (Duoneb) 3 ml 1X ONCE NEB Last administered on 04/25/19at 18:17; Start 04/25/19 at 18:30; Stop 04/25/19 at 18:31; Status DC Albuterol/ Ipratropium (Duoneb) 3 ml STK-MED ONCE .ROUTE ; Start 04/25/19 at 18:13; Stop 04/25/19 at 18:14; Status DC Aspirin (Radha Aspirin) 325 mg 1X ONCE PO Last administered on 04/25/19at 18:45; Start 04/25/19 at 18:45; Stop 04/25/19 at 18:46; Status DC Albuterol Sulfate (Ventolin) 2.5 mg 1X ONCE NEB Last administered on 04/25/19at 19:32; Start 04/25/19 at 19:15; Stop 04/25/19 at 19:16; Status DC Furosemide (Lasix) 40 mg 1X ONCE IVP Last administered on 04/25/19at 20:57; Start 04/25/19 at 20:15; Stop 04/25/19 at 20:16; Status DC Potassium Chloride (Klor-Con) 40 meq 1X ONCE PO Last administered on 04/25/19at 20:57; Start 04/25/19 at 20:15; Stop 04/25/19 at 20:16; Status DC Ondansetron HCl (Zofran) 4 mg PRN Q4HRS PRN IV NAUSEA/VOMITING; Start 04/25/19 at 20:15; Stop 04/26/19 at 20:14 Acetaminophen (Tylenol) 650 mg PRN Q4HRS PRN PO FEVER; Start 04/25/19 at 20:15; Stop 04/26/19 at 20:14 Nitroglycerin (Nitrostat) 0.4 mg PRN Q5MIN PRN SL CHEST PAIN; Start 04/25/19 at 20:15; Stop 04/26/19 at 20:14 Albuterol/ Ipratropium (Duoneb) 3 ml RTQID NEB Last administered on 04/26/19at 11:58; Start 04/26/19 at 08:00; Stop 04/27/19 at 07:59 Montelukast Sodium (Singulair) 10 mg 1X ONCE PO Last administered on 04/26/19at 00:17; Start 04/25/19 at 23:45; Stop 04/25/19 at 23:50; Status DC Albuterol/ Ipratropium (Duoneb) 3 ml STK-MED ONCE .ROUTE ; Start 04/26/19 at 04:50; Stop 04/26/19 at 04:50; Status DC Fentanyl Citrate (Fentanyl 2ml Vial) 50 mcg PRN Q3HRS PRN IVP PAIN Last administered on 04/26/19at 10:09; Start 04/26/19 at 10:15 Active Scripts Active Aspirin Ec (Aspirin) 81 Mg Tablet. 81 Mg PO DAILYWBKFT 30 Days Reported Hydromorphone Hcl 4 Mg Tablet 1 PO BID FENTANYL 25mcg/hr (Fentanyl) 1 Each Patch.td72 1 TP Q3DAYS Verapamil Er (Verapamil Hcl) 240 Mg Tablet.er 0.5 PO DAILY Vitamin D (Cholecalciferol (Vitamin D3)) 5,000 Unit Capsule 5,000 Unit PO DAILY Claritin (Loratadine) 10 Mg Tablet 1 Tab PO BID Folic Acid 1 Mg Tablet 1 Tab PO DAILY Montelukast Sodium Tablet (Montelukast Sodium) 10 Mg Tablet 10 Mg PO HS Myrbetriq (Mirabegron) 25 Mg Tab.er.24h 25 Mg PO DAILY Omeprazole 20 Mg Capsule. 1 Cap PO DAILY ALLERGIES Allergies: Coded Allergies: codeine (Verified Allergy, Intermediate, 04/04/18) shrimp (Verified Allergy, Intermediate, 04/04/18) ROS General: YES: Fatigue Respiratory: YES: Shortness of breath, SOB with excertion, Sputum Changes PHYSICAL EXAM General: mild distress HEENT: Atraumatic Lungs: Other (decreased breath sounds) Heart: Other (regular rhythm with a rate of 94) VITALS Vital Signs Vital Signs Date Time Temp Pulse Resp B/P (MAP) Pulse Ox O2 Delivery O2 Flow Rate FiO2 04/26/19 12:00 95 Nasal Cannula 2.0 04/26/19 11:11 106 16 128/82 (97) 04/26/19 07:37 98.6 LABS LABS Laboratory Tests Test 04/25/19 19:02 04/25/19 23:45 04/26/19 04:30 White Blood Count 4.7 x10^3/uL (4.0-11.0) 2.0 x10^3/uL (4.0-11.0) Red Blood Count 4.03 x10^6/uL (3.50-5.40) 4.14 x10^6/uL (3.50-5.40) Hemoglobin 11.4 g/dL (12.0-15.5) 11.7 g/dL (12.0-15.5) Hematocrit 36.3 % (36.0-47.0) 37.0 % (36.0-47.0) Mean Corpuscular Volume 90 fL (79-100) 89 fL (79-100) Mean Corpuscular Hemoglobin 28 pg (25-35) 28 pg (25-35) Mean Corpuscular Hemoglobin Concent 31 g/dL (31-37) 32 g/dL (31-37) Red Cell Distribution Width 16.8 % (11.5-14.5) 16.5 % (11.5-14.5) Platelet Count 190 x10^3/uL (140-400) 172 x10^3/uL (140-400) Neutrophils (%) (Auto) 74 % (31-73) 64 % (31-73) Lymphocytes (%) (Auto) 16 % (24-48) 28 % (24-48) Monocytes (%) (Auto) 7 % (0-9) 7 % (0-9) Eosinophils (%) (Auto) 1 % (0-3) 0 % (0-3) Basophils (%) (Auto) 1 % (0-3) 1 % (0-3) Neutrophils # (Auto) 3.4 x10^3uL (1.8-7.7) 1.2 x10^3uL (1.8-7.7) Lymphocytes # (Auto) 0.8 x10^3/uL (1.0-4.8) 0.6 x10^3/uL (1.0-4.8) Monocytes # (Auto) 0.3 x10^3/uL (0.0-1.1) 0.1 x10^3/uL (0.0-1.1) Eosinophils # (Auto) 0.1 x10^3/uL (0.0-0.7) 0.0 x10^3/uL (0.0-0.7) Basophils # (Auto) 0.0 x10^3/uL (0.0-0.2) 0.0 x10^3/uL (0.0-0.2) Sodium Level 145 mmol/L (136-145) 145 mmol/L (136-145) Potassium Level 3.9 mmol/L (3.5-5.1) 4.0 mmol/L (3.5-5.1) Chloride Level 107 mmol/L (98-107) 107 mmol/L (98-107) Carbon Dioxide Level 29 mmol/L (21-32) 30 mmol/L (21-32) Anion Gap 9 (6-14) 8 (6-14) Blood Urea Nitrogen 18 mg/dL (7-20) 22 mg/dL (7-20) Creatinine 0.4 mg/dL (0.6-1.0) 0.5 mg/dL (0.6-1.0) Estimated GFR (Cockcroft-Gault) 155.6 120.3 BUN/Creatinine Ratio 45 (6-20) Glucose Level 100 mg/dL (70-99) 131 mg/dL (70-99) Lactic Acid Level 0.8 mmol/L (0.4-2.0) Calcium Level 9.1 mg/dL (8.5-10.1) 9.2 mg/dL (8.5-10.1) Magnesium Level 1.7 mg/dL (1.8-2.4) 1.9 mg/dL (1.8-2.4) Total Bilirubin 0.2 mg/dL (0.2-1.0) Aspartate Amino Transf (AST/SGOT) 31 U/L (15-37) Alanine Aminotransferase (ALT/SGPT) 18 U/L (14-59) Alkaline Phosphatase 54 U/L (46-116) Creatine Kinase 133 U/L (26-192) Creatine Kinase MB (Mass) 3.7 ng/mL (0.0-3.6) Creatine Kinase MB Relative Index 2.8 % (0-4) Troponin I Quantitative 0.223 ng/mL (0-0.055) 0.136 ng/mL (0-0.055) 0.137 ng/mL (0-0.055) CP-Khm-N-Type Natriuretic Peptide 1253 pg/mL (0-449) Total Protein 8.7 g/dL (6.4-8.2) Albumin 3.0 g/dL (3.4-5.0) Albumin/Globulin Ratio 0.5 (1.0-1.7) Segmented Neutrophils % 62 % (35-66) Band Neutrophils % 3 % (0-9) Lymphocytes % 24 % (24-48) Atypical Lymphocytes % (Manual) 1 % (0-0) Monocytes % 10 % (0-10) Platelet Estimate Adequate (ADEQUATE) Platelet Clumps, EDTA Present Large Platelets Occ Polychromasia Slight Poikilocytosis Slight Anisocytosis Slight Target Cells Occ Tear Drop Cells Occ Ovalocytes Occ Triglycerides Level 47 mg/dL (0-150) Cholesterol Level 145 mg/dL (0-200) LDL Cholesterol, Calculated 82 mg/dL (0-100) VLDL Cholesterol, Calculated 9 mg/dL (0-40) Non-HDL Cholesterol Calculated 91 mg/dL (0-129) HDL Cholesterol 54 mg/dL (40-60) Cholesterol/HDL Ratio 2.0 Thyroid Stimulating Hormone (TSH) 1.326 uIU/mL (0.358-3.740) IMAGES IMAGES Chest x-ray with mild pulmonary edema EKG EKG Sinus tachycardia with lateral T wave depression ASSESSMENT/PLAN Assessment/Plan 1. Shortness of breath. Mild probable diastolic heart failure as well as COPD. Pulmonary treatments have been started. Patient is feeling better. We'll check old records as well as checking an echocardiogram. 2. Diastolic heart failure. Continue mild diuresis with monitoring of lab. Echocardiogram. 3. Minimally elevated troponin at 0.223 and has tapered downward. Consistent with demand ischemia. We'll continue present underlying treatments and monitor. 4. Severe rheumatoid arthritis. Multiple orthopedic procedures. Continuing present treatment. Thank you for allowing us to participate in the care of your patient. KATE FLEMING MD Apr 26, 2019 15:44
[2019-04-26] MEDS ORDERED: fentaNYL 25MCG/HR 1 PATCH PATCH TD SCH (16:00)
[2019-04-26] MEDS ORDERED: ADAL40PE SQ (16:25)
[2019-04-26 16:28] LABS: HEMATOCRIT 37.5 % (36.0-47.0); HEMOGLOBIN 11.7 g/dL (12.0-15.5); RED BLOOD COUNT 4.14 x10^6/uL (3.50-5.40); RED CELL DISTRIBUTION WIDTH 16.8 % (11.5-14.5); WHITE BLOOD COUNT 4.9 x10^3/uL (4.0-11.0)
[2019-04-26 16:31] LABS: CALCIUM 9.4 mg/dL (8.5-10.1); CREATININE 0.7 mg/dL (0.6-1.0); GFR 81.6; POTASSIUM 4.1 mmol/L (3.5-5.1)
--- NOTE | 2019-04-26 16:35 | HP ---
ADMIT DATE: 04/25/2019 HISTORY OF PRESENT ILLNESS: The patient is a 74-year-old -Slovak female patient who was brought to the Emergency Room with a complaint of increasing shortness of breath that has been going on for the last 3 weeks. She stated that she has been coughing up greenish sputum, although when I asked if she has difficulty expectorating, denied any chest pain, nausea, vomiting, or fever. She lives at home with a caregiver. She told the nurse that she has not been able to walk since July last year. However, her children stated that she has been bedridden for years now that she only gets out of the bed to go to the bathroom or to be clean or when she gets into the wheelchair to go to her appointment with her doctors. She was extensively investigated in the Emergency Room. Her lab works were generally unremarkable. Her chest x-ray showed that cardiomediastinal silhouette is within normal limits. The pulmonary vessels are prominent, hazy opacities in the lungs, and the lungs bilaterally, no pleural effusion. Findings are consistent with mild pulmonary edema. In fact, she was treated with Lasix in the Emergency Room, and was admitted for further evaluation as her initial troponin was slightly elevated at 0.223. We will do 2 more sets of cardiac enzyme and consult the Cardiology team. PAST MEDICAL HISTORY: Significant for chronic constipation, rheumatoid arthritis. PAST SURGICAL HISTORY: Significant for right total hip arthroplasty, bilateral total knee replacement, cholecystectomy, and right eye cataract extraction. FAMILY HISTORY: Noncontributory. SOCIAL HISTORY: She lives with a caregiver. She does not smoke, drink alcohol, or use recreational drugs. 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 MEDICATIONS: She is currently on following medications: She is on loratadine 10 mg once a day, verapamil 240 mg once a day, aspirin 81 mg once a day. She is on fentanyl 25 mcg per hour, topically q. 72 hours, hydromorphone 4 mg twice a day, montelukast 10 mg at bedtime, omeprazole 20 mg once a day, Myrbetriq 25 mg once a day, folic acid 1 mg once a day, cholecalciferol 5000 international unit once a day. REVIEW OF SYSTEMS: As per history of present illness. PHYSICAL EXAMINATION: GENERAL: On arrival to the Emergency Room, she looked pale, but no jaundice, cyanosis, or thyromegaly. No jugular venous distention. No lower limb edema. VITAL SIGNS: Her heart rate was 117, blood pressure was 163/91, temperature was 98.3, respiratory rate 20, and oxygen saturation was 92% on room air. HEAD, EYES, EARS, NOSE, AND THROAT: Normocephalic, atraumatic. NECK: Supple. HEART: Showed normal first and second heart sounds. No gallop, rub, or murmur. CHEST: Clear to auscultation. No crepitation or rhonchi. ABDOMEN: Distended, soft, and nontender. NEUROLOGIC: She is awake, alert, responding appropriately. All cranial nerves intact. She moves her upper extremities to much good extent than her lower extremities. She has severe deforming rheumatoid arthritis. Her left lower extremity seems to be shorter than the right and somewhat attenuated. LABORATORY DATA: Her lab work on admission showed a white cell count of 4700, hemoglobin 11.4, hematocrit 36, MCV 90, and platelet count of 190,000. Her chemistry showed a serum sodium of 145, potassium 3.9, chloride 107, bicarbonate 29, anion gap of 9, BUN 18, creatinine 0.4, estimated GFR was 155 mL per minute. Her glucose was 100, lactic acid was 0.8, calcium was 9.1, magnesium was 1.7. Total bilirubin, AST, ALT, alkaline phosphatase were normal. Her first set of troponin was 0.223. Beta-natriuretic peptide was 1250. Total protein was 8.7, albumin was 3. Her chest x-ray showed that her cardiomediastinal silhouette is within normal limits. The pulmonary vessels are prominent, hazy opacities in the lungs bilaterally. No pleural effusion. Findings are consistent with mild pulmonary edema. She apparently was treated with IV Lasix and was given also dexamethasone and nebulized albuterol and Atrovent. ASSESSMENT AND PLAN: So, in summary, this is a 74-year-old, -Slovak female patient who was admitted with increasing shortness of breath, diagnosed with congestive heart failure, slightly elevated troponin. We will do 2 more sets of cardiac enzyme. We will consult the Cardiology team. KIYA GILLETTE MD DR: GUY/deborah JOB#: [id number] / [id number]
[2019-04-26] MEDS: HYDROmorphone 2 MG TABLET PO SCH (20:00)
[2019-04-26] MEDS: MONTELUKAST 10 MG TABLET. PO SCH (20:00)
--- NOTE | 2019-04-26 20:21 | PN ---
DATE: 04/26/2019 SUBJECTIVE: The patient is resting, slightly propped up in bed, continues to complain of shortness of breath. PHYSICAL EXAMINATION: GENERAL: When I examined her, she was pale, extremely cachectic, but no jaundice, cyanosis or thyromegaly. No jugular venous distention. No limb edema. VITAL SIGNS: Her heart rate was 106, blood pressure was 128/82, temperature was 98.6, respiratory rate was 16, and oxygen saturation was 95% on room air. HEAD, EYES, EARS, NOSE AND THROAT: Showed normocephalic, atraumatic. NECK: Supple. HEART: Showed normal first and second heart sounds with no gallop or murmur. CHEST: Clear to auscultation. No crepitation or rhonchi. ABDOMEN: Distended, soft, nontender. NEUROLOGIC: She was awake, alert, responding appropriately. All cranial nerves intact. She moves upper extremities to much good extent than lower extremities. Apparently, she is mostly bedbound. She has severe deforming rheumatoid arthritis. She has also discrepancy in the length of her extremities with left lower extremity internally rotated. LABORATORY DATA: Her lab work this morning showed a white cell count 2000, hemoglobin 11.7, hematocrit 37, MCV was 89 and platelet 172,000. Her chemistry showed a serum sodium of 145, potassium was 4, chloride 107, bicarbonate 30, anion gap of 8, BUN 22, creatinine 0.5, estimated GFR was 120 mL per minute. Her glucose 131, calcium was 9.2. She has 2 more sets of cardiac enzymes, showed troponin is down to 0.136. Her serum triglycerides were 47, total cholesterol was 145 and LDL cholesterol 82, LDL was 82, VLDL was 9, HDL was 54, the ratio was 2. Her TSH was 1.326. ASSESSMENT: This is a 74-year-old -Wallisian with chronic deforming rheumatoid arthritis who was admitted with shortness of breath. Chest x-ray was consistent with mild pulmonary edema for which she was treated with IV Lasix. PLAN: To resume all her medication, treat her with more Lasix and add Mucinex and perhaps steroids and nebulized treatment and repeat her labs and chest x-ray tomorrow. KIYA GILLETTE MD DR: GUY/deborah JOB#: [id number] / [id number]
[2019-04-27] VITALS (15 sets, daily range): BP systolic 106–166; BP diastolic 47–89
[2019-04-27] MEDS: IPRATRPIUM/ALBUTEROL 0.5/2.5MG 3 ML NEBU. NEB SCH ×4 (05:09→21:10)
[2019-04-27] MEDS: ACETAMINOPHEN 325 MG TABLET PO PRN ×2 (07:15→14:56)
[2019-04-27] MEDS ORDERED: ONDANSETRON PF 4 MG/2 ML VIAL. IVP PRN (07:15)
--- NOTE | 2019-04-27 07:28 | RAD ---
Study: CHEST AP ONLY Indication: Worsening shortness of breath. Comparison: 04/25/2019 Findings: Redemonstrated asymmetric elevation of the right hemidiaphragm with overlying volume loss but slightly progressed. Increased lung markings bilaterally are very similar to the prior. No newly seen pneumothorax, large effusion or lobar infiltrate. The heart is again noted to be enlarged. Diffuse osteopenia. End-stage arthrosis of both shoulders. Impression: The radiographic appearance of the chest is very similar to the 04/25/2019 comparison. No newly seen large effusion, pneumothorax or lobar infiltrate. Slightly more pronounced right lower lung atelectasis. Electronically signed by: ROSA ELENA AMOS MD (04/27/2019 7:25 AM) [facility]
[2019-04-27] MEDS: HYDROmorphone 2 MG TABLET PO SCH ×2 (09:00→22:23)
[2019-04-27] MEDS: MIRABEGRON 25 MG TAB.ER.24H PO SCH (09:00)
[2019-04-27] MEDS ORDERED: METOCLOPRAMIDE HCL 10 MG/2 ML VIAL. IVP PRN (09:15)
[2019-04-27] MEDS: CHOLECALCIFEROL (VITAMIN D3) 1,000 UNIT TABLET PO SCH (09:24)
[2019-04-27] MEDS: FOLIC ACID 1 MG TABLET PO SCH (09:24)
[2019-04-27] MEDS: CETIRIZINE HCL 10 MG TABLET PO SCH (09:24)
[2019-04-27] MEDS: PANTOPRAZOLE 40 MG TABLET. PO SCH (09:24)
[2019-04-27] MEDS: ASPIRIN ENTERIC COATED 81 MG TABLET.DR. PO SCH (09:24)
[2019-04-27] MEDS: FUROSEMIDE 40 MG/4 ML VIAL IVP SCH (09:24)
[2019-04-27] MEDS: VERAPAMIL SR 120 MG TABLET.ER. PO SCH (09:25)
--- NOTE | 2019-04-27 10:28 | NUR ---
Pt had some vomiting today. See meds given. PT had mild fever this am. Will continue to monitor. Pt is able to verbalize understanding of poc. Karissa NEVES
--- NOTE | 2019-04-27 12:02 | PN ---
DATE: SUBJECTIVE: The patient is a 74-year-old -Anguill[place] female patient who was admitted through the Emergency Department with increasing shortness of breath and elevated troponin. She was treated with IV Lasix and we continued her all other medication. We did consult also the blockers skiver and she recommended to continue with current plan of management and arranged for her to have an echocardiogram. Her troponin is slightly elevated and felt that this is tapered down and consistent with demand ischemia. PHYSICAL EXAMINATION: GENERAL: When I saw her today, she was resting slightly propped up in bed, in no apparent respiratory distress, pale, extremely cachectic, but no jaundice, cyanosis or thyromegaly. No jugular venous distention or limb edema. VITAL SIGNS: Her heart rate was 100, blood pressure 150/89, temperature was 100.1, respiratory rate was 17 and oxygen saturation was 98% on 2 liters of oxygen. HEAD, EYES, EARS, NOSE AND THROAT: Showed normocephalic, atraumatic. NECK: Supple. HEART: Showed normal first and second heart sounds. No gallop or murmur. CHEST: Shows central trachea, equally reduced expansion, reduced air entry, vesicular sounds with bilateral scattered rhonchi. I could not appreciate any crepitation. ABDOMEN: Distended, soft, nontender. NEUROLOGIC: She was awake, alert, responding appropriately. All cranial nerves intact. She moves her upper extremities to much extent than lower extremities. According to her family, she is mostly bed bound. We did review chest x-ray, showed that the radiographic appearance of the chest is very similar to that on 04/25/2019 in comparison. No newly seen large effusion, pneumothorax or lobar infiltrate. Slightly more pronounced right lower lung atelectasis. In fact, the findings are more consistent with mild pulmonary edema. PLAN: My plan is to continue with IV Lasix. Start her on DuoNeb and also start her on steroids and decide on further management accordingly. KIYA GILLETTE MD DR: GUY/deborah JOB#: [id number] / [id number]
[2019-04-27 14:24] LABS: BACTERIA,URINE FEW /HPF (0-FEW); BILIRUBIN,URINE NEG (NEG); CLARITY,URINE CLOUDY; COLOR,URINE YELLOW; GLUCOSE,URINE NEG (NEG); NITRITE,URINE NEG (NEG); SQUAMOUS EPITHELIAL CELL,UR FEW /LPF; UROBILINOGEN,URINE 0.2 mg/dL (0.2 mg/dL)
[2019-04-27 14:25] LABS: GRANULAR CASTS,URINE OCC /HPF; HYALINE CASTS, URINE FEW /HPF
--- NOTE | 2019-04-27 15:12 | NUR ---
Pt more lethargic and slow to respond. PT urine foul and smells like ammonia. Chaparro placed and urine sent to lab. PT had 500+ urine out incontinent. Dr. Laurent contacted, see orders. ABG ordered. Will continue to monitor. Karissa NEVES
--- NOTE | 2019-04-27 17:45 | NUR ---
ABG abnormal DR Laurent notified. He recommended BIPAP for an hour. Pt is full code. If patient PH and PCO3 does not improve within 1-2 hours. Patient needs to go to [facility] with pulmonology and possibly intubated. Please notify Mehran of abg results. Connie NEVES
[2019-04-27 17:46] LABS: BGAS PH 7.22 (7.35-7.45)
--- NOTE | 2019-04-27 18:45 | NUR ---
PT requesting medication due to anxiety from starting BIPAP. At approx 1900 pt oxygen starting to desat with correct wave form 64%. Multiple interventions attempted. Nursing sup, RT called to bedside. After monitoring patient and using multiple probes Oxygen came back up and varies between 80's and 90's. Prior to Bipap patient was 100% on 2 L. PT currently on Bipap 25% Fi02. PT stable and monitoring closely. Karissa NEVES
[2019-04-27] MEDS ORDERED: NALOXONE 0.4 MG/ML VIAL. ONE (18:52)
[2019-04-27 21:04] LABS: BGAS PH 7.35 (7.35-7.45)
--- NOTE | 2019-04-27 22:00 | NUR ---
Pt status improving. Sats >93% on FIO2 35%. pt resting more calm and breathing more relaxed. will continue to monitor closely through the night.
[2019-04-27] MEDS: methylPREDNISolone SOD SUCC PF 40 MG/ML VIAL. IV SCH (22:22)
[2019-04-27] MEDS: LACTOBACILLUS RHAMNOSUS GG 1 CAPSULE. PO SCH (22:23)
[2019-04-27] MEDS: MONTELUKAST 10 MG TABLET. PO SCH (22:23)
[2019-04-28] VITALS (14 sets, daily range): BP systolic 127–165; BP diastolic 63–90
[2019-04-28 05:35] LABS: BGAS PH 7.28 (7.35-7.45)
[2019-04-28] MEDS: IPRATRPIUM/ALBUTEROL 0.5/2.5MG 3 ML NEBU. NEB SCH ×2 (05:42→09:25)
[2019-04-28 06:55] LABS: HEMATOCRIT 37.4 % (36.0-47.0); HEMOGLOBIN 11.8 g/dL (12.0-15.5); RED BLOOD COUNT 4.09 x10^6/uL (3.50-5.40); RED CELL DISTRIBUTION WIDTH 16.6 % (11.5-14.5); WHITE BLOOD COUNT 5.5 x10^3/uL (4.0-11.0)
[2019-04-28 07:15] LABS: ALBUMIN 3.3 g/dL (3.4-5.0); ALBUMIN/GLOBULIN RATIO 0.6 (1.0-1.7); CALCIUM 9.5 mg/dL (8.5-10.1); CREATININE 0.5 mg/dL (0.6-1.0); GFR 120.3; POTASSIUM 4.7 mmol/L (3.5-5.1); TOTAL BILIRUBIN 0.3 mg/dL (0.2-1.0); TOTAL PROTEIN 9.3 g/dL (6.4-8.2)
--- NOTE | 2019-04-28 07:37 | PDOC ---
CARDIO Progress Notes Date & Time Date of Service DATE: 04/28/19 TIME: 07:32 Time of Evaluation 07:32 Subjective Notes Confused this morning; repeating get this nurse. Did complain of chest, but was unable to elaborate as she continue to repeat get the nurse. Is on BiPAP Vitals Vitals Vital Signs Date Time Temp Pulse Resp B/P (MAP) Pulse Ox O2 Delivery O2 Flow Rate FiO2 04/28/19 05:42 98 BiPAP/CPAP 04/28/19 05:00 97 160/71 (100) 04/28/19 03:00 97.6 04/27/19 19:06 16 04/27/19 17:14 2.0 Weight Weight [ ] Input and Output I.O. Intake and Output 04/28/19 07:00 Intake Total 320 ml Output Total 1025 ml Balance -705 ml Intake Oral 320 ml Output Urine Total 925 ml Emesis 100 ml Laboratory Labs Laboratory Tests Test 04/26/19 16:10 04/27/19 13:42 04/27/19 17:25 04/27/19 20:55 White Blood Count 4.9 x10^3/uL (4.0-11.0) Red Blood Count 4.14 x10^6/uL (3.50-5.40) Hemoglobin 11.7 g/dL (12.0-15.5) Hematocrit 37.5 % (36.0-47.0) Mean Corpuscular Volume 91 fL (79-100) Mean Corpuscular Hemoglobin 28 pg (25-35) Mean Corpuscular Hemoglobin Concent 31 g/dL (31-37) Red Cell Distribution Width 16.8 % (11.5-14.5) Platelet Count 216 x10^3/uL (140-400) Sodium Level 144 mmol/L (136-145) Potassium Level 4.1 mmol/L (3.5-5.1) Chloride Level 106 mmol/L (98-107) Carbon Dioxide Level 32 mmol/L (21-32) Anion Gap 6 (6-14) Blood Urea Nitrogen 30 mg/dL (7-20) Creatinine 0.7 mg/dL (0.6-1.0) Estimated GFR (Cockcroft-Gault) 81.6 Glucose Level 104 mg/dL (70-99) Calcium Level 9.4 mg/dL (8.5-10.1) Urine Collection Type U cath Urine Color Yellow Urine Clarity Cloudy Urine pH 5.0 Urine Specific [place] 1.010 Urine Protein Neg (NEG-TRACE) Urine Glucose (UA) Neg mg/dL (NEG) Urine Ketones (Stick) Neg mg/dL (NEG) Urine Blood Large (NEG) Urine Nitrite Neg (NEG) Urine Bilirubin Neg (NEG) Urine Urobilinogen Dipstick 0.2 mg/dL (0.2 mg/dL) Urine Leukocyte Esterase Small (NEG) Urine RBC 6-10 /HPF (0-2) Urine WBC 5-10 /HPF (0-4) Urine Squamous Epithelial Cells Few /LPF Urine Bacteria Few /HPF (0-FEW) Urine Hyaline Casts Few /HPF Urine Granular Casts Occ /HPF Blood Gas pH 7.22 (7.35-7.45) 7.35 (7.35-7.45) Blood Gas PCO2 95 mmHg (35-45) 64 mmHg (35-45) Blood Gas PO2 86 mmHg (71-100) 55 mmHg (71-100) Blood Gas HCO3 38 mmol/L (22-26) 35 mmol/L (22-26) Arterial Bld O2 Saturation (Calc) 93 % (92-99) 86 % (92-99) FiO2 28 % 25 % Test 04/28/19 05:23 04/28/19 06:40 Blood Gas pH 7.28 (7.35-7.45) Blood Gas PCO2 76 mmHg (35-45) Blood Gas PO2 112 mmHg (71-100) Blood Gas HCO3 36 mmol/L (22-26) Arterial Bld O2 Saturation (Calc) 97 % (92-99) FiO2 35 % White Blood Count 5.5 x10^3/uL (4.0-11.0) Red Blood Count 4.09 x10^6/uL (3.50-5.40) Hemoglobin 11.8 g/dL (12.0-15.5) Hematocrit 37.4 % (36.0-47.0) Mean Corpuscular Volume 92 fL (79-100) Mean Corpuscular Hemoglobin 29 pg (25-35) Mean Corpuscular Hemoglobin Concent 32 g/dL (31-37) Red Cell Distribution Width 16.6 % (11.5-14.5) Platelet Count 197 x10^3/uL (140-400) Sodium Level 143 mmol/L (136-145) Potassium Level 4.7 mmol/L (3.5-5.1) Chloride Level 103 mmol/L (98-107) Carbon Dioxide Level 33 mmol/L (21-32) Anion Gap 7 (6-14) Blood Urea Nitrogen 30 mg/dL (7-20) Creatinine 0.5 mg/dL (0.6-1.0) Estimated GFR (Cockcroft-Gault) 120.3 BUN/Creatinine Ratio 60 (6-20) Glucose Level 128 mg/dL (70-99) Calcium Level 9.5 mg/dL (8.5-10.1) Total Bilirubin 0.3 mg/dL (0.2-1.0) Aspartate Amino Transf (AST/SGOT) 29 U/L (15-37) Alanine Aminotransferase (ALT/SGPT) 20 U/L (14-59) Alkaline Phosphatase 52 U/L (46-116) CW-Tec-V-Type Natriuretic Peptide 1717 pg/mL (0-449) Total Protein 9.3 g/dL (6.4-8.2) Albumin 3.3 g/dL (3.4-5.0) Albumin/Globulin Ratio 0.6 (1.0-1.7) Physical Exams HEENT: Neck Supple W Full Motion Chest: Symmetric Lungs: Other (fine expiratory wheezes, on BiPAP) Heart: RRR, other (distant heart tones ) Abdomen: Soft N/T Extremities: No Edema Neurology: alert, confused Assessment Assessment 1. Acute respiratory failure with AE COPD; on BiPAP this morning 2. Acute diastolic HF; improved with diuresis. F/u CXR with improvement 3. Chest pain; details unclear. Patient unable to describe pain this morning 3. Mild troponin elevation; peak 0.223. 4. Severe RA 5. Encephalopathy Recommendations Continue BiPAP Repeat troponin EKG ASA therapy Ongoing diuresis Supportive care Consider Pulmonary evaluation. NISA AVILA APRN Apr 28, 2019 07:37
[2019-04-28] MEDS ORDERED: ASPIRIN 325 MG TABLET PO ONE (08:15)
[2019-04-28 08:22] LABS: BGAS PH 7.29 (7.35-7.45)
[2019-04-28] MEDS: methylPREDNISolone SOD SUCC PF 40 MG/ML VIAL. IV SCH (08:35)
[2019-04-28] MEDS: HYDROmorphone 2 MG TABLET PO SCH (08:36)
[2019-04-28] MEDS: FUROSEMIDE 40 MG/4 ML VIAL IVP SCH (08:36)
[2019-04-28] MEDS: MIRABEGRON 25 MG TAB.ER.24H PO SCH (08:36)
[2019-04-28] MEDS: PANTOPRAZOLE 40 MG TABLET. PO SCH (08:37)
[2019-04-28] MEDS: ASPIRIN ENTERIC COATED 81 MG TABLET.DR. PO SCH (08:37)
[2019-04-28] MEDS: LACTOBACILLUS RHAMNOSUS GG 1 CAPSULE. PO SCH (08:37)
[2019-04-28] MEDS: FOLIC ACID 1 MG TABLET PO SCH (08:37)
[2019-04-28] MEDS: CHOLECALCIFEROL (VITAMIN D3) 1,000 UNIT TABLET PO SCH (08:38)
[2019-04-28] MEDS: CETIRIZINE HCL 10 MG TABLET PO SCH (08:38)
[2019-04-28] MEDS: VERAPAMIL SR 120 MG TABLET.ER. PO SCH (08:41)
--- NOTE | 2019-04-28 11:47 | NUR ---
NSG NOTE; DECISION TO TRANSFER TO [facility] PT INCREASINGLY SOA WITH LITTLE IMPROVEMENT IN ABGs. PT INFORMED OF CRITICAL CONDITION BY DR GILLETTE AND ASKED ABOUT HER CODE STATUS (CURRENTLY FULL CODE). SHE REPEATEDLY STATED HER CODE STATUS IS UP TO HER TWO ADULT SONS. I WAS ABLE TO GET AHOLD OF SON CASSIDY ALEGRIA WHO STATED THE PT IS FULL CODE AND THAT WE NEED TO DO EVERYTHING TO SAVE HER. DR GILLETTE INFORMED OF SON'S STATEMENT AND ORDERS TRANSFER TO [facility] ICU. DR GILLETTE AND MARLY LORENZO START TRANSFER PROCESS
--- NOTE | 2019-04-28 13:42 | NUR ---
NSG NOTE; TRANSFER TO [facility] REPORT CALLED TO CELESTE NEVES TRANSFERRED TO [facility] AT 1340 VIA CART WITH O2 AND CPAP ACCOMP BY EMS PERSONNEL. SON CASSIDY NOTIFIED OF PT'S DEPARTURE
--- NOTE | 2019-04-28 14:37 | EKG ---
[address] [address] Test Date: 2019-04-28 Test Time: 08:56:01 Pat Name: VLAD ALEGRIA Department: Room: [facility] 1 Gender: F Adult Caregiver: COREY : 1945 Requested By: NISA AVILA Order Number: [id number] Reading MD: Giovany Huertas Measurements Intervals [place] Rate: 91 P: 53 [place]: 138 QRS: 37 QRSD: 82 T: 152 QT: 340 QTc: 420 Interpretive Statements SINUS RHYTHM LEFT ATRIAL ABNORMALITY LVH WITH REPOLARIZATION ABNORMALITY ABNORMAL ECG Electronically Signed On 05-05-2019 15:27:24 BUILD TECHNICIAN by Giovany Huertas
--- NOTE | 2019-04-28 21:30 | PN ---
DATE: 04/28/2019 SUBJECTIVE: The patient is resting, propped up in bed, clearly very tachypneic, hypoxic, and hypercapnic. We did start her yesterday on BiPAP machine. Her blood gases yesterday showed a pH of 7.22, pCO2 of 95, pO2 of 86, and bicarbonate was 38. Her blood gases this morning showed a pH of 7.29, pCO2 of 74, pO2 of 78, bicarbonate 35, and oxygen saturation was 93% on FiO2 of 30% on BiPAP machine. She is still full code and she is very confused, unable to give us any guidance, kept repeating that her 2 boys are the decision makers, so we will talk to them that she probably needed to be transferred to [facility] for possible intubation. PHYSICAL EXAMINATION: GENERAL: When I examined her, she was pale and cachectic, but no jaundice or cyanosis. No lymphadenopathy, no thyromegaly. No jugular venous distention. No limb edema. VITAL SIGNS: Her heart rate was 94, blood pressure was 165/70, her temperature was 97.6, respiratory rate was 28 and oxygen saturation was 98% when she was on BiPAP with a FiO2 of 30%. HEAD, EYES, EARS, NOSE AND THROAT: Showed normocephalic, atraumatic. NECK: Supple. HEART: Showed normal first and second heart sounds. No gallop or murmur. CHEST: Shows central trachea, equal bilateral expansion, air entry, diffuse scattered rhonchi and crepitation posteriorly. ABDOMEN: Distended, soft, nontender. NEUROLOGIC: She is awake, alert, but very confused. All her cranial nerves intact. She moves upper extremities to much good extent than lower extremities. She has severe deforming rheumatoid arthritis. Her intake over the last 24 hours was 1285, no output was recorded. LABORATORY DATA: Her lab work this morning showed a pH of 7.29, pCO2 of 74, pO2 of 78, bicarbonate 35, and oxygen saturation was 93% on FiO2 of 30%. Her white cell count was 5500, hemoglobin 11.8, hematocrit 37, MCV 92, and platelet count of 197,000. Her chemistry showed a serum sodium 143, potassium 4.7, chloride 103, bicarbonate 33, anion gap of 7, BUN 30, creatinine 0.5, estimated GFR was 120 mL per minute. Her glucose was 128, calcium was 9.5. Total bilirubin, AST, ALT, alkaline phosphatase were normal. BNP was 1700. Total protein was 9.3, albumin 3.3. ASSESSMENT: 1. Acute on chronic hypoxic hypercapnic respiratory failure, likely multifactorial. 2. Acute on chronic diastolic congestive heart failure. 3. She has severe deforming rheumatoid arthritis, possibly also interstitial lung disease. PLAN: My plan is to talk with her family and plan is to probably transfer her to [facility] ICU to consult the country printer. KIYA GILLETTE MD DR: GUY/deborah JOB#: [id number] / [id number]
[2019-04-29] MEDS ORDERED: fentaNYL 25MCG/HR 1 PATCH PATCH TD SCH (09:00)
--- NOTE | 2019-06-12 13:42 | DS ---
DATE OF DISCHARGE: 04/28/2019 HOSPITAL COURSE: This is a 74-year-old female patient who was admitted to [facility] on 04/25/2019 with increasing shortness of breath that has been going on for the last 3 weeks. She also stated that she has been coughing up greenish sputum, although when I asked if she has difficulty expectorating, denied any chest pain, nausea, vomiting or fever. She lives at home with a caregiver. She stated that she has not been able to walk since 07/2018; however, her children stated that she has been bedridden for years now. She only gets out of the bed to go to the bathroom or to be cleaned or when she gets into the wheelchair to go to her appointment with her doctor. She was extensively investigated in the Emergency Room. Her lab work was generally unremarkable. Her chest x-ray showed that she has cardiomediastinal silhouette within normal range. The findings on her chest x-ray are consistent with mild pulmonary edema. She was treated with Lasix in the Emergency Room and was admitted for further evaluation. She was seen in consultation by the Cardiology team and unfortunately she continued to deteriorate and despite treatment with BiPAP machine, a decision was made to transfer her to [facility] with a plan to consult the cleaner wall to assist with her management. PHYSICAL EXAMINATION: GENERAL: When I examined her on the day of discharge, she was pale, cachectic, but no jaundice or cyanosis. No lymphadenopathy, no thyromegaly, no jugular venous distention, no limb edema. VITAL SIGNS: Her heart rate was 94, blood pressure was 165/70, temperature was 97.6, respiratory rate 28, and oxygen saturation was 98% on BiPAP machine with an FiO2 of 30%. HEAD, EYES, EARS, NOSE AND THROAT: Showed normocephalic, atraumatic. NECK: Supple. HEART: Normal first and second heart sounds. No gallop or murmur. CHEST: Clear to auscultation. No crepitation or rhonchi. ABDOMEN: Distended, soft, nontender. NEUROLOGIC: She was awake, alert, responding at times appropriately, although mostly she is confused. She is able to move her upper extremities to much good extent than her lower extremities. She has severe deforming rheumatoid arthritis. FINAL DISCHARGE DIAGNOSES: 1. Acute on chronic hypoxic hypercapnic respiratory failure, likely multifactorial. 2. Acute on chronic diastolic congestive heart failure. 3. Severe deforming rheumatoid arthritis. 4. Possible interstitial lung disease. KIYA GILLETTE MD DR: GUY/deborah JOB#: [id number] / [id number]
== END 2019-04-28 13:40 | disposition short-term general hospital (02) | DRG 280 ==
LOC: ER 17:19 → ICU 20:05 → ER 21:51
PROVIDERS: ADMIT Internal Medicine; ATTEND Internal Medicine
PROC: 5A09357 Assistance with Respiratory Ventilation, Less than 24 Consecutive Hours, Continuous Positive Airway Pressure (ICD-10-PCS; principal; 2019-04-27)
DX: I21.A1 Myocardial infarction type 2 (principal); J96.21 Acute and chronic respiratory failure with hypoxia; J96.22 Acute and chronic respiratory failure with hypercapnia; I50.33 Acute on chronic diastolic (congestive) heart failure; G93.40 Encephalopathy, unspecified; I11.0 Hypertensive heart disease with heart failure; J44.9 Chronic obstructive pulmonary disease, unspecified; M06.9 Rheumatoid arthritis, unspecified; Z96.641 Presence of right artificial hip joint; Z96.653 Presence of artificial knee joint, bilateral; Z82.49 Family history of ischemic heart disease and other diseases of the circulatory system; Z90.710 Acquired absence of both cervix and uterus
CPT/HCPCS: 36415; 36600; 71045; 73502; 73552; 80048; 80053; 80061; 81001; 82553; 82803; 83605; 83735; 83880; 84443; 84484; 85007; 85025; 85027; 87086; 87186; 93005; 94640; 94660; 94760; 96374; 96375; J0696; J1100; J1940; J2765; J2920; J3010; J7613; J7620; 99285-25